=== PATIENT | female | born 1970 | race Hispanic/Latino ===

== ENCOUNTER → 2018-01-22 | Outpatient (CLI) | payer MEDICAID | LOC: RAH 13:42 | PROVIDERS: ATTEND Internal Medicine Medical Oncology | DX: C73 Malignant neoplasm of thyroid gland (principal); E89.0 Postprocedural hypothyroidism | CPT/HCPCS: 76536 ==

== ENCOUNTER → 2018-01-27 | Outpatient (CLI) | payer MEDICAID | END | disposition home or self-care (01) | LOC: SHCH 10:48 | PROVIDERS: ATTEND Internal Medicine Cardiovascular Disease | DX: I51.7 Cardiomegaly (principal); I31.3 Pericardial effusion (noninflammatory) | CPT/HCPCS: 93306 ==

== ENCOUNTER 2019-07-01 08:13 | Emergency (ER) | payer MEDICAID, SELFPAY ==
[2019-07-01] MEDS ORDERED: MORPHINE SULFATE 4 MG/1ML SYG ONE (08:47)
[2019-07-01 08:55] LABS: BASOPHILS % (AUTO) 0.3 % (0.0-5.0); EOSINOPHILS % (AUTO) 1.8 % (0.0-8.0); HEMATOCRIT 34.5 % (36-48); LYMPHOCYTES % (AUTO) 12.5 % (21.0-51.0); MEAN CORPUSCULAR HEMOGLOBIN 30.8 pg (27.0-33.0); MEAN CORPUSCULAR HGB CONC 34.7 g/dL (32.0-36.0); MEAN CORPUSCULAR VOLUME 88.9 fL (79-99); MONOCYTES % (AUTO) 4.5 % (3.0-13.0); NEUTROPHILS % (AUTO) 80.9 % (40.0-77.0); PLATELET COUNT (AUTO) 369 K/uL (130-400); RED BLOOD CELL COUNT(AUTO) 3.88 MIL/uL (4.00-5.50); RED CELL DISTRIBUTION WIDTH 14.3 % (11.0-15.5); WHITE BLOOD COUNT (AUTO) 8.5 K/uL (4.8-10.8)
[2019-07-01 09:02] LABS: CREATININE 0.8 mg/dL (0.5-1.5); POTASSIUM 3.5 mmol/L (3.5-5.1)
[2019-07-01 10:34] LABS: BILIRUBIN,URINE SMALL (NEGATIVE); COLOR,URINE YELLOW (YELLOW); GLUCOSE, URINE (UA) 100 mg/dL (NEGATIVE); KETONES,URINE NEGATIVE (NEGATIVE); LEUKOCYTE ESTERASE ,URINE NEGATIVE (NEGATIVE); NITRATE,URINE NEGATIVE (NEGATIVE); OCCULT BLOOD,URINE LARGE (NEGATIVE); PROTEIN,URINE >=300 mg/dL (NEGATIVE)
[2019-07-01 10:57] LABS: APPEARANCE,URINE CLOUDY (CLEAR)
[2019-07-01 11:07] LABS: BACTERIA,URINE Many /HPF (None Seen); SQUAMOUS EPITHELIAL CELL,UR 0-2 /HPF (0-2)
[2019-07-01 11:08] LABS: AMORPHOUS SEDIMENT,UR Moderate /LPF (None Seen)
[2019-07-01 11:09] LABS: YEAST,URINE BUDDING Many /HPF (None Seen)
== END 2019-07-01 17:17 | disposition home or self-care (01) ==
LOC: EDH 08:13
DX: S20.212A Contusion of left front wall of thorax, initial encounter (principal); S70.02XA Contusion of left hip, initial encounter; E11.9 Type 2 diabetes mellitus without complications; F41.9 Anxiety disorder, unspecified; F32.9 Major depressive disorder, single episode, unspecified; W01.198A Fall on same level from slipping, tripping and stumbling with subsequent striking against other object, initial encounter; Y93.89 Activity, other specified; Y92.89 Other specified places as the place of occurrence of the external cause; Y99.8 Other external cause status
CPT/HCPCS: 36415; 70450; 71101; 73502; 80048; 81001; 84484; 85025; 93005; 96374; 99285; J2270

== ENCOUNTER 2019-07-03 01:26 | Inpatient (IN) | payer MEDICAID ==
[~2019-07-03] VITALS: Ht 149.9 cm; Wt 63.8 kg
[2019-07-03] MEDS ORDERED: SODIUM CHLORIDE 0.9% 1000ML 1,000 ML IV ONE ×2 (03:18→12:32)
[2019-07-03 03:23] LABS: BASOPHILS % (AUTO) 2.3 % (0.0-5.0); EOSINOPHILS % (AUTO) 1.3 % (0.0-8.0); HEMATOCRIT 35.7 % (36-48); LYMPHOCYTES % (AUTO) 7.9 % (21.0-51.0); MEAN CORPUSCULAR HGB CONC 34.2 g/dL (32.0-36.0); MEAN CORPUSCULAR VOLUME 87.8 fL (79-99); MONOCYTES % (AUTO) 4.8 % (3.0-13.0); NEUTROPHILS % (AUTO) 83.7 % (40.0-77.0); PLATELET COUNT (AUTO) 342 K/uL (130-400); RED BLOOD CELL COUNT(AUTO) 4.07 MIL/uL (4.00-5.50); WHITE BLOOD COUNT (AUTO) 11.4 K/uL (4.8-10.8)
[2019-07-03 03:35] LABS: CREATININE 0.6 mg/dL (0.5-1.5); POTASSIUM 4.8 mmol/L (3.5-5.1)
[2019-07-03 03:40] LABS: APPEARANCE,URINE CLOUDY (CLEAR); BILIRUBIN,URINE SMALL (NEGATIVE); COLOR,URINE YELLOW (YELLOW); GLUCOSE, URINE (UA) NEGATIVE (NEGATIVE); KETONES,URINE 5 mg/dL (NEGATIVE); LEUKOCYTE ESTERASE ,URINE NEGATIVE (NEGATIVE); NITRATE,URINE NEGATIVE (NEGATIVE); OCCULT BLOOD,URINE MODERATE (NEGATIVE); PROTEIN,URINE >=300 mg/dL (NEGATIVE)
[2019-07-03 03:44] LABS: INR 1.01 (0.85-1.15); PROTHROMBIN TIME 10.6 SEC (9.6-11.6)
[2019-07-03 03:47] LABS: ALBUMIN 2.1 g/dL (3.5-5.0); BILIRUBIN,TOTAL 0.9 mg/dL (0.2-1.0); THYROID STIMULATING HORMONE 42.61 uIU/mL (0.36-3.74)
[2019-07-03 03:49] LABS: AMPHET/METH SCREEN,URINE NEGATIVE (NEGATIVE); BARBITURATE SCREEN, URINE NEGATIVE (NEGATIVE); BENZODIAZEPINES SCREEN,URINE NEGATIVE (NEGATIVE); CANNABINOID SCREEN,URINE NEGATIVE (NEGATIVE); COCAINE SCREEN,URINE NEGATIVE (NEGATIVE); OPIATE SCREEN,URINE NEGATIVE (NEGATIVE); PHENCYCLIDINE SCREEN,URINE NEGATIVE (NEGATIVE)
[2019-07-03 03:58] LABS: B-TYPE NATRIURETIC PEPTIDE 99 pg/mL (0-100)
[2019-07-03 04:05] LABS: BACTERIA,URINE Many /HPF (None Seen)
[2019-07-03 04:06] LABS: SQUAMOUS EPITHELIAL CELL,UR 0-2 /HPF (0-2); YEAST,URINE BUDDING Many /HPF (None Seen)
[2019-07-03] MEDS: SODIUM CHLORIDE 0.9% 1000ML 1,000 ML IV SCH ×2 (04:31→14:31)
[2019-07-03] MEDS ORDERED: ALPRAZOLAM 0.25 MG TABLET PO PRN (04:45)
[2019-07-03] MEDS ORDERED: LACTULOSE 20 GM/30 ML UDCUP PO PRN (04:45)
[2019-07-03] MEDS ORDERED: ACETAMINOPHEN 325 MG TAB PO PRN (04:45)
[2019-07-03] MEDS ORDERED: CEFTRIAXONE SODIUM 1 GM IV SCH (04:45)
[2019-07-03 05:46] LABS: HEMOGLOBIN A1C 12.4 % (4.0-6.0)
[2019-07-03] MEDS ORDERED: CEFTRIAXONE SODIUM 1 GM ONE (06:19)
[2019-07-03] MEDS: INSULIN HUMULIN R 100 UNIT/ML 3ML SQ SCH ×4 (07:30→21:00)
[2019-07-03] MEDS: FAMOTIDINE 20MG TAB 20 MG TAB PO SCH ×2 (09:00→21:35)
[2019-07-03] MEDS: ENOXAPARIN SODIUM 30 MG/0.3 ML SQ SCH (09:00)
[2019-07-03] MEDS ORDERED: LACTULOSE 20 GM/30 ML UDCUP ONE (12:28)
[2019-07-03] MEDS ORDERED: ENOXAPARIN SODIUM 30 MG/0.3 ML SQ ONE (12:28)
[2019-07-03] MEDS ORDERED: FAMOTIDINE 20MG TAB 20 MG TAB ONE (12:28)
[2019-07-03] MEDS ORDERED: INSULIN HUMULIN R 100 UNIT/ML 3ML ONE (13:16)
[2019-07-03 16:00] VITALS: BP 136/89
[2019-07-03] MEDS: CEFTRIAXONE SODIUM 1 GM IVP SCH (17:51)
[2019-07-03 19:15] VITALS: BP 138/83
--- NOTE | 2019-07-03 19:52 | NUR ---
ADDENDUM TO SKIN ASS. RIGHT BUTTOCK ULCER MEASURING 2.5CM DIAMETER YELLOWISH IN COLOR SUPERFICIALLY ENCOMPASSING ENTIRE ULCER ,WASH WITH STERILE NSS ,COVERED WITH ALLEVYN FOAM. LEFT BUTTOCK WITH A 7 X8 SWELLING WITH INDURATION NOTED ,DARKLY PIGMENTED AREA, NO VISIBLE OPENING BUT TENDER TO PALPATION PER PT. WARM COMPRESS APPLIED ,WILL REPORT TO IN A.M. Addendum: 07/04/19 at 0329 by DANI CHÁVEZ RN RN Amended: Links added.
[2019-07-03] MEDS: TRAZODONE HCL 100 MG TABLET PO SCH (21:35)
[2019-07-03] MEDS: INSULIN GLARGINE 100 UNITS/ML 10 ML VIAL SQ SCH (21:37)
[2019-07-03 23:38] VITALS: BP 97/56
[2019-07-04] MEDS: SODIUM CHLORIDE 0.9% 1000ML 1,000 ML IV SCH ×3 (00:39→21:52)
[2019-07-04 03:02] VITALS: BP 97/62
[2019-07-04] MEDS: CEFTRIAXONE SODIUM 1 GM IVP SCH ×2 (03:04→14:22)
[2019-07-04] MEDS: ACETAMINOPHEN 325 MG TAB PO PRN (03:05)
[2019-07-04] MEDS: INSULIN HUMULIN R 100 UNIT/ML 3ML SQ SCH ×4 (06:15→21:00)
[2019-07-04] MEDS ORDERED: LEVOTHYROXINE 50 MCG TABLET PO SCH (06:30)
[2019-07-04 07:30] VITALS: BP 89/48
--- NOTE | 2019-07-04 08:00 | NUR ---
Patient awake, responds to simple questions, denying pain. Skin color pale in general. Roper catheter draining dark yellow color urine. 1:1 sitter
[2019-07-04 08:15] VITALS: BP 91/59
[2019-07-04] MEDS: FAMOTIDINE 20MG TAB 20 MG TAB PO SCH (08:24)
[2019-07-04] MEDS: PAROXETINE HCL 20 MG TABLET PO SCH (08:24)
[2019-07-04] MEDS: TRAZODONE HCL 100 MG TABLET PO SCH ×3 (08:24→22:52)
[2019-07-04] MEDS: ENOXAPARIN SODIUM 30 MG/0.3 ML SQ SCH (08:24)
[2019-07-04 10:40] LABS: BASOPHILS % (AUTO) 1.2 % (0.0-5.0); EOSINOPHILS % (AUTO) 0.5 % (0.0-8.0); HEMATOCRIT 27.4 % (36-48); LYMPHOCYTES % (AUTO) 9.1 % (21.0-51.0); MEAN CORPUSCULAR HEMOGLOBIN 30.3 pg (27.0-33.0); MEAN CORPUSCULAR HGB CONC 34.2 g/dL (32.0-36.0); MEAN CORPUSCULAR VOLUME 88.6 fL (79-99); MONOCYTES % (AUTO) 4.9 % (3.0-13.0); NEUTROPHILS % (AUTO) 84.3 % (40.0-77.0); PLATELET COUNT (AUTO) 254 K/uL (130-400); RED CELL DISTRIBUTION WIDTH 14.5 % (11.0-15.5); WHITE BLOOD COUNT (AUTO) 14.5 K/uL (4.8-10.8)
--- NOTE | 2019-07-04 10:40 | NUR ---
Referral to Raffi yates was called in to [facility] to [phone]. She said that since the patient is not cleared for discharge yet that she cannot send a screener so to go ahead and call again when pt is clear for discharge so that Raffi yates can send the screener. Jossy ARELLANO Case-distribution warehouse manager aware
--- NOTE | 2019-07-04 10:40 | NUR ---
Dr Barney informed of drop on hemoglobin from 12 to 9 levels. He will give orders
[2019-07-04 10:56] LABS: ALBUMIN 1.5 g/dL (3.5-5.0); BILIRUBIN,TOTAL 0.3 mg/dL (0.2-1.0); CREATININE 1.2 mg/dL (0.5-1.5); TOTAL PROTEIN, SERUM 5.5 g/dL (6.0-8.3)
[2019-07-04 10:57] LABS: POTASSIUM 2.9 mmol/L (3.5-5.1)
[2019-07-04 11:00] VITALS: BP 91/56
[2019-07-04] MEDS: LEVOTHYROXINE 50 MCG TABLET PO SCH (11:16)
[2019-07-04] MEDS: POLYETHYLENE GLYCOL 3350 17 GM POWD.PACK PO SCH (11:16)
[2019-07-04] MEDS ORDERED: POTASSIUM CHLORIDE 20 MEQ ERTAB PO PRN (11:30)
[2019-07-04] MEDS ORDERED: POTASSIUM CHLORIDE 10MEQ/100ML 100 ML IV PRN (11:30)
[2019-07-04] MEDS ORDERED: LIDOCAINE HCL-MPF 1% 2ML VIAL IV PRN (11:30)
--- NOTE | 2019-07-04 12:39 | NUR ---
Nutrition intervention: Nutrition notification for malnutrition. Pt admitted for UTI, and Fall. Pt reports poor quality of feeding patterns at home. Unable to prepare her own meals or go to the restroom. Pt states she lives with daughter who prepares pt's meals x1/day after daughter gets home from work. Pt states she wears a diaper for when she has a bowel movement or urinates. Pt states she cleans herself every day. Pt also states she has poor appetite, however sitter states she had good po intake for breakfast. Pt with noted ulcers to her buttocks, recommend increased protein. Recommendations: Continue current diet therapy. Modify with Glucerna BID with meals for added caloric intake. Feeding assistance with all meals. Monitor PO intake and tolerance Addendum: 07/04/19 at [address] Amended: Links added.
[2019-07-04 14:21] LABS: HEMATOCRIT 28.8 % (36-48)
[2019-07-04] MEDS: POTASSIUM CHLORIDE 10% ELIXIR 20 MEQ/15 ML UDCUP PO PRN ×2 (14:49→17:11)
[2019-07-04 16:00] VITALS: BP 104/59
--- NOTE | 2019-07-04 16:00 | NUR ---
Tolerating potassium IV infusion well due to low potassium level
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
[2019-07-04] MEDS ORDERED: POTASSIUM CHLORIDE 20MEQ/100ML 100 ML IV PRN (18:15)
[2019-07-04 18:55] LABS: CREATININE 1.1 mg/dL (0.5-1.5); POTASSIUM 3.8 mmol/L (3.5-5.1)
[2019-07-04 20:00] VITALS: BP 115/81
[2019-07-04] MEDS: INSULIN GLARGINE 100 UNITS/ML 10 ML VIAL SQ SCH (21:00)
--- NOTE | 2019-07-04 21:00 | NUR ---
med non-administered lantus scheduled for 2099 not given ,pt very poor appetite,/intake , weak ,bs 102. encouraged po intake ,offered jello /apple juice Addendum: 07/04/19 at 5485 by DANI CHÁVEZ RN RN Amended: Links added.
[2019-07-04] MEDS: PANTOPRAZOLE SODIUM 40 MG TABLET.DR PO SCH (22:52)
[2019-07-05] VITALS (7 sets, daily range): BP systolic 94–121; BP diastolic 55–72
[2019-07-05] MEDS: ONDANSETRON HCL 4 MG/2 ML VIAL IV PRN (00:13)
[2019-07-05] MEDS: CEFTRIAXONE SODIUM 1 GM IVP SCH (03:09)
[2019-07-05] MEDS ORDERED: DEXTROSE 50%-WATER 50 ML DISP.SYRIN IV ONE (06:08)
[2019-07-05] MEDS ORDERED: GLUCAGON 1MG KIT 1 MG ML IM PRN (06:15)
[2019-07-05] MEDS ORDERED: LEVOTHYROXINE 112 MCG TABLET PO SCH (06:30)
[2019-07-05] MEDS: INSULIN HUMULIN R 100 UNIT/ML 3ML SQ SCH ×4 (06:42→21:00)
[2019-07-05] MEDS: SODIUM CHLORIDE 0.9% 1000ML 1,000 ML IV SCH (06:42)
[2019-07-05 06:57] LABS: BASOPHILS % (AUTO) 0.4 % (0.0-5.0); EOSINOPHILS % (AUTO) 0.2 % (0.0-8.0); HEMATOCRIT 28.3 % (36-48); LYMPHOCYTES % (AUTO) 4.2 % (21.0-51.0); MEAN CORPUSCULAR HEMOGLOBIN 30.2 pg (27.0-33.0); MEAN CORPUSCULAR HGB CONC 33.7 g/dL (32.0-36.0); MEAN CORPUSCULAR VOLUME 89.5 fL (79-99); MONOCYTES % (AUTO) 4.9 % (3.0-13.0); NEUTROPHILS % (AUTO) 90.3 % (40.0-77.0); PLATELET COUNT (AUTO) 223 K/uL (130-400); RED BLOOD CELL COUNT(AUTO) 3.16 MIL/uL (4.00-5.50); RED CELL DISTRIBUTION WIDTH 14.5 % (11.0-15.5); WHITE BLOOD COUNT (AUTO) 19.5 K/uL (4.8-10.8)
[2019-07-05 07:13] LABS: ALBUMIN 1.4 g/dL (3.5-5.0); BILIRUBIN,TOTAL 0.4 mg/dL (0.2-1.0); POTASSIUM 3.5 mmol/L (3.5-5.1); TOTAL PROTEIN, SERUM 5.5 g/dL (6.0-8.3)
--- NOTE | 2019-07-05 08:00 | NUR ---
Patient answer question appropriately. Denies pain at the moment, skin color still slightly pale
[2019-07-05] MEDS: POLYETHYLENE GLYCOL 3350 17 GM POWD.PACK PO SCH (08:16)
[2019-07-05] MEDS: PAROXETINE HCL 20 MG TABLET PO SCH (08:16)
[2019-07-05] MEDS: PANTOPRAZOLE SODIUM 40 MG TABLET.DR PO SCH ×2 (08:16→21:57)
[2019-07-05] MEDS: TRAZODONE HCL 100 MG TABLET PO SCH ×3 (08:16→21:57)
[2019-07-05] MEDS: ENOXAPARIN SODIUM 30 MG/0.3 ML SQ SCH (08:21)
[2019-07-05] MEDS: LEVOTHYROXINE 50 MCG TABLET PO SCH (10:59)
--- NOTE | 2019-07-05 11:30 | NUR ---
Dr Hercules visited with pt earlier, no new orders. Informed him that as per [place] [facility] screener cannot come to evaluate pt until pt is medically cleared and as per Dr Barney pt is not medically cleared
[2019-07-05] MEDS: DEXTROSE 5 % AND 0.9 % NACL 1,000 ML IV SCH (14:17)
[2019-07-05] MEDS: POTASSIUM CHLORIDE 10% ELIXIR 20 MEQ/15 ML UDCUP PO PRN (14:17)
[2019-07-05] MEDS: ZOSYN 3.375GM+NS 50ML 50 ML IV SCH ×2 (14:25→21:57)
--- NOTE | 2019-07-05 16:00 | NUR ---
Pt in no distress. 1:1 sitter at bedside
[2019-07-05] MEDS: INSULIN GLARGINE 100 UNITS/ML 10 ML VIAL SQ SCH (21:58)
[2019-07-06] MEDS: DEXTROSE 5 % AND 0.9 % NACL 1,000 ML IV SCH ×3 (00:52→21:35)
[2019-07-06 04:00] VITALS: BP 93/62
[2019-07-06] MEDS: ZOSYN 3.375GM+NS 50ML 50 ML IV SCH ×3 (05:32→21:34)
[2019-07-06 06:09] LABS: BASOPHILS % (AUTO) 0.6 % (0.0-5.0); EOSINOPHILS % (AUTO) 1.1 % (0.0-8.0); HEMATOCRIT 26.4 % (36-48); LYMPHOCYTES % (AUTO) 4.2 % (21.0-51.0); MEAN CORPUSCULAR HEMOGLOBIN 30.3 pg (27.0-33.0); MEAN CORPUSCULAR VOLUME 89.1 fL (79-99); MONOCYTES % (AUTO) 4.2 % (3.0-13.0); NEUTROPHILS % (AUTO) 89.9 % (40.0-77.0); PLATELET COUNT (AUTO) 227 K/uL (130-400); RED BLOOD CELL COUNT(AUTO) 2.96 MIL/uL (4.00-5.50); RED CELL DISTRIBUTION WIDTH 14.9 % (11.0-15.5); WHITE BLOOD COUNT (AUTO) 18.8 K/uL (4.8-10.8)
[2019-07-06] MEDS: LEVOTHYROXINE 150 MCG TABLET PO SCH (06:24)
[2019-07-06] MEDS: INSULIN HUMULIN R 100 UNIT/ML 3ML SQ SCH ×4 (06:34→21:00)
[2019-07-06 06:35] LABS: ALBUMIN 1.4 g/dL (3.5-5.0); BILIRUBIN,TOTAL 0.5 mg/dL (0.2-1.0); POTASSIUM 3.6 mmol/L (3.5-5.1); THYROID STIMULATING HORMONE 34.78 uIU/mL (0.36-3.74); TOTAL PROTEIN, SERUM 5.5 g/dL (6.0-8.3)
[2019-07-06 08:00] VITALS: BP 97/63
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
--- NOTE | 2019-07-06 10:10 | NUR ---
1:1 SITTER PT HAS 1:1 SITTER AT BEDSIDE FOR SUICIDAL PRECAUTIONS. PT DENIES ANY PLAN FOR SUICIDE AT THIS TIME, BUT STATES IS DEPRESSED. WILL CONTINUE TO MONITOR THROUGHOUT SHIFT. Addendum: 07/06/19 at 1514 by NAHOMY RINCON RN RN Amended: Links added.
[2019-07-06] MEDS: PANTOPRAZOLE SODIUM 40 MG TABLET.DR PO SCH ×2 (10:37→21:34)
[2019-07-06] MEDS: PAROXETINE HCL 20 MG TABLET PO SCH (10:38)
[2019-07-06] MEDS: POTASSIUM CHLORIDE 10% ELIXIR 20 MEQ/15 ML UDCUP PO PRN ×2 (10:38→14:40)
[2019-07-06] MEDS: POLYETHYLENE GLYCOL 3350 17 GM POWD.PACK PO SCH (10:39)
[2019-07-06] MEDS: ENOXAPARIN SODIUM 30 MG/0.3 ML SQ SCH (10:39)
[2019-07-06] MEDS: MORPHINE SULFATE 2 MG/ML 1ML SYG IV PRN (10:40)
[2019-07-06] MEDS: TRAZODONE HCL 100 MG TABLET PO SCH ×3 (10:42→21:34)
[2019-07-06 11:00] VITALS: BP 101/69
[2019-07-06] MEDS: ONDANSETRON HCL 4 MG/2 ML VIAL IV PRN (14:37)
[2019-07-06] MEDS ORDERED: LEVOFLOXACIN 500 MG TABLET PO SCH (16:30)
[2019-07-06 16:34] VITALS: BP 123/78
[2019-07-06 20:00] VITALS: BP 112/71
[2019-07-06] MEDS: INSULIN GLARGINE 100 UNITS/ML 10 ML VIAL SQ SCH (21:46)
[2019-07-07] VITALS (7 sets, daily range): BP systolic 90–133; BP diastolic 57–79
[2019-07-07] MEDS: DEXTROSE 5 % AND 0.9 % NACL 1,000 ML IV SCH ×2 (05:15→08:35)
[2019-07-07 05:19] LABS: BASOPHILS % (AUTO) 0.7 % (0.0-5.0); HEMATOCRIT 27.5 % (36-48); LYMPHOCYTES % (AUTO) 5.6 % (21.0-51.0); MEAN CORPUSCULAR HEMOGLOBIN 30.2 pg (27.0-33.0); MEAN CORPUSCULAR HGB CONC 33.2 g/dL (32.0-36.0); MEAN CORPUSCULAR VOLUME 90.9 fL (79-99); MONOCYTES % (AUTO) 3.5 % (3.0-13.0); NEUTROPHILS % (AUTO) 88.2 % (40.0-77.0); PLATELET COUNT (AUTO) 215 K/uL (130-400); RED BLOOD CELL COUNT(AUTO) 3.03 MIL/uL (4.00-5.50); RED CELL DISTRIBUTION WIDTH 14.7 % (11.0-15.5); WHITE BLOOD COUNT (AUTO) 16.8 K/uL (4.8-10.8)
[2019-07-07 05:35] LABS: ALBUMIN 1.3 g/dL (3.5-5.0); BILIRUBIN,TOTAL 0.4 mg/dL (0.2-1.0); CREATININE 1.1 mg/dL (0.5-1.5); POTASSIUM 3.7 mmol/L (3.5-5.1); TOTAL PROTEIN, SERUM 5.5 g/dL (6.0-8.3)
[2019-07-07] MEDS: INSULIN HUMULIN R 100 UNIT/ML 3ML SQ SCH ×4 (06:19→20:29)
[2019-07-07] MEDS: ZOSYN 3.375GM+NS 50ML 50 ML IV SCH ×3 (06:37→22:31)
[2019-07-07] MEDS: POLYETHYLENE GLYCOL 3350 17 GM POWD.PACK PO SCH (08:34)
[2019-07-07] MEDS: PAROXETINE HCL 20 MG TABLET PO SCH (08:35)
[2019-07-07] MEDS: PANTOPRAZOLE SODIUM 40 MG TABLET.DR PO SCH ×2 (08:35→20:35)
[2019-07-07] MEDS: ENOXAPARIN SODIUM 30 MG/0.3 ML SQ SCH (08:35)
[2019-07-07] MEDS: TRAZODONE HCL 100 MG TABLET PO SCH ×3 (08:35→20:35)
--- NOTE | 2019-07-07 08:35 | NUR ---
PATIENT AWAKE ALERT AND ORIENTED. DRESSING TO R GLUTEUS IS INTACT. PATIENT STATES SHE IS ABLE TO MOVE ADVISED PATIENT TO SHIFT POSITIONS EVERY HOUR, OR TO CALL FOR ASSISTANCE IS NEEDING HELP. NO COMPLAINTS AT THIS TIME. PATIENT STATES SHE FEELS FINE. SITTER AT BEDSIDE.
[2019-07-07] MEDS ORDERED: LEVOFLOXACIN 500 MG TABLET PO SCH (09:00)
[2019-07-07] MEDS: MORPHINE SULFATE 2 MG/ML 1ML SYG IV PRN (10:34)
--- NOTE | 2019-07-07 11:14 | NUR ---
ODILON PENNINGTON ROUNDING ON PATIENT. NEW ORDERS TO DISCONTINUE MORPHINE AND FLUIDS. GORGECUTTER FIRST TO PUT IN ORDERS.
--- NOTE | 2019-07-07 11:45 | NUR ---
ORANGE JUICE GIVEN TO PATIENT TO DRINK FOR BLOOD SUGAR OF 56. PATIENT EATING LUNCH AT THIS TIME.
[2019-07-07] MEDS: LEVOFLOXACIN 500 MG TABLET PO SCH (12:03)
[2019-07-07] MEDS: DEXTROSE 50%-WATER 50 ML DISP.SYRIN IV PRN ×2 (12:21→20:37)
[2019-07-07] MEDS: HYDROCODONE/ACETAMINOPHEN 5/325 MG TAB PO PRN ×2 (12:28→18:35)
--- NOTE | 2019-07-07 15:18 | NUR ---
RD Follow Up Pt tolerating current diet with fair PO intake (50%) as per cat sitter. Pt resting at time of visit. Pt with R. Buttock ulcer; Rec to add Dov BID, Vitamin C, ZnSO4. Also Rec 60mL ProMod QD. Pt monitored labs: BUN 19, GFr 56, Glu 133, Ca 6.4, ALT 10, Alk 179, Alb 1.3. Pt LBM 07/06/19. RD to continue to monitor. Please notify as additional nutrition concerns arise. Thank you. Addendum: 07/07/19 at [address] Amended: Links added.
--- NOTE | 2019-07-07 16:06 | NUR ---
[facility] consult Patient assessed as ordered. St II pressure ulcer to right buttock noted. AlleVputi life foam in place. [facility] recommendations submitted. Addendum: 07/07/19 at 1613 by PAT CUEVAS RN/ Amended: Links added.
[2019-07-07] MEDS: INSULIN GLARGINE 100 UNITS/ML 10 ML VIAL SQ SCH (20:30)
[2019-07-07] MEDS: ONDANSETRON HCL 4 MG/2 ML VIAL IV PRN (20:37)
--- NOTE | 2019-07-07 20:51 | NUR ---
Patient's blood sugar was 42. Patient is alert and awake but unable to eat cause of nausea. D50 in 50 ml was give through the IV access and zofran for nausea was given as well. Will recheck blood sugar in 30 minutes. Will monitor patient closely. No insulin was given
--- NOTE | 2019-07-07 21:23 | NUR ---
recheck of blood sugar is 99. Will recheck again at midnight since patient has not been eating well.
[2019-07-07] MEDS: ACETAMINOPHEN 325 MG TAB PO PRN (22:32)
[2019-07-08] VITALS (8 sets, daily range): BP systolic 88–120; BP diastolic 56–87
--- NOTE | 2019-07-08 00:40 | NUR ---
Paged Serina PLANISHER regarding patient's low blood pressure. Pending call back
--- NOTE | 2019-07-08 00:58 | NUR ---
Serina DONALD came to put orders for d5 ns at 100 and to recheck blood pressure in an hour. Will monitor patient closely
[2019-07-08] MEDS ORDERED: DEXTROSE 5 %-0.45 % NACL 1,000 ML IV SCH (01:00)
[2019-07-08] MEDS ORDERED: DEXTROSE 5 % AND 0.9 % NACL 1,000 ML IV ONE (01:01)
[2019-07-08] MEDS: DEXTROSE 5 % AND 0.9 % NACL 1,000 ML IV SCH ×2 (01:15→09:11)
[2019-07-08 05:15] LABS: MEAN CORPUSCULAR HEMOGLOBIN 30.5 pg (27.0-33.0); MEAN CORPUSCULAR HGB CONC 33.8 g/dL (32.0-36.0); MEAN CORPUSCULAR VOLUME 90.3 fL (79-99); PLATELET COUNT (AUTO) 232 K/uL (130-400); RED BLOOD CELL COUNT(AUTO) 2.99 MIL/uL (4.00-5.50); RED CELL DISTRIBUTION WIDTH 14.5 % (11.0-15.5); WHITE BLOOD COUNT (AUTO) 11.9 K/uL (4.8-10.8)
[2019-07-08 05:23] LABS: CREATININE 1.3 mg/dL (0.5-1.5); POTASSIUM 3.9 mmol/L (3.5-5.1)
[2019-07-08] MEDS: LEVOTHYROXINE 150 MCG TABLET PO SCH (05:54)
[2019-07-08] MEDS: ZOSYN 3.375GM+NS 50ML 50 ML IV SCH (05:54)
[2019-07-08] MEDS: INSULIN HUMULIN R 100 UNIT/ML 3ML SQ SCH ×4 (05:58→20:04)
[2019-07-08] MEDS: HYDROCODONE/ACETAMINOPHEN 5/325 MG TAB PO PRN (07:43)
[2019-07-08] MEDS: ONDANSETRON HCL 4 MG/2 ML VIAL IV PRN (08:50)
[2019-07-08] MEDS ORDERED: LEVOFLOXACIN 500 MG TABLET PO SCH (09:00)
[2019-07-08] MEDS: TRAZODONE HCL 100 MG TABLET PO SCH ×3 (09:10→21:03)
[2019-07-08] MEDS: POLYETHYLENE GLYCOL 3350 17 GM POWD.PACK PO SCH (09:10)
[2019-07-08] MEDS: ENOXAPARIN SODIUM 30 MG/0.3 ML SQ SCH (09:10)
[2019-07-08] MEDS: PANTOPRAZOLE SODIUM 40 MG TABLET.DR PO SCH ×2 (09:10→21:03)
[2019-07-08] MEDS: PAROXETINE HCL 20 MG TABLET PO SCH (09:10)
[2019-07-08] MEDS: LEVOFLOXACIN 500 MG TABLET PO SCH (10:54)
[2019-07-08] MEDS: ACETAMINOPHEN 325 MG TAB PO PRN (14:09)
[2019-07-08] MEDS ORDERED: DEXAMETHASONE 4 MG TAB PO SCH (16:00)
[2019-07-08] MEDS ORDERED: POLYETHYLENE GLYCOL 3350 17 GM POWD.PACK PO SCH (17:30)
[2019-07-08] MEDS ORDERED: LACTULOSE 20 GM/30 ML UDCUP PO SCH (17:30)
--- NOTE | 2019-07-08 19:15 | NUR ---
HOLLIS CATHETER OUTPUT ONLY 240 ML. HOLLIS CATHETER WILL STAY IN PLACE.
[2019-07-09] VITALS (7 sets, daily range): BP systolic 103–149; BP diastolic 73–92
[2019-07-09 05:03] LABS: HEMATOCRIT 27.8 % (36-48); MEAN CORPUSCULAR HEMOGLOBIN 30.5 pg (27.0-33.0); MEAN CORPUSCULAR HGB CONC 33.7 g/dL (32.0-36.0); MEAN CORPUSCULAR VOLUME 90.5 fL (79-99); PLATELET COUNT (AUTO) 242 K/uL (130-400); RED BLOOD CELL COUNT(AUTO) 3.07 MIL/uL (4.00-5.50); RED CELL DISTRIBUTION WIDTH 15.1 % (11.0-15.5); WHITE BLOOD COUNT (AUTO) 9.3 K/uL (4.8-10.8)
[2019-07-09 05:10] LABS: CREATININE 1.3 mg/dL (0.5-1.5); POTASSIUM 4.1 mmol/L (3.5-5.1)
[2019-07-09] MEDS: LEVOTHYROXINE 150 MCG TABLET PO SCH (05:45)
[2019-07-09] MEDS: INSULIN HUMULIN R 100 UNIT/ML 3ML SQ SCH ×4 (06:32→20:36)
[2019-07-09] MEDS: POLYETHYLENE GLYCOL 3350 17 GM POWD.PACK PO SCH (08:35)
[2019-07-09] MEDS: PANTOPRAZOLE SODIUM 40 MG TABLET.DR PO SCH ×2 (08:35→20:30)
[2019-07-09] MEDS: ENOXAPARIN SODIUM 30 MG/0.3 ML SQ SCH (08:35)
[2019-07-09] MEDS: DEXAMETHASONE 4 MG TAB PO SCH (08:35)
[2019-07-09] MEDS: PAROXETINE HCL 20 MG TABLET PO SCH (08:35)
[2019-07-09] MEDS: TRAZODONE HCL 100 MG TABLET PO SCH ×3 (09:15→20:31)
[2019-07-09] MEDS: DEXTROSE 5 % AND 0.9 % NACL 1,000 ML IV SCH (11:15)
[2019-07-09] MEDS: LEVOFLOXACIN 500 MG TABLET PO SCH (12:36)
[2019-07-09] MEDS: GUAIFENESIN-CODEINE 5 ML SYRUP PO PRN ×3 (12:37→22:38)
[2019-07-09] MEDS ORDERED: HYDROCORTISONE SOD SUCCINATE 100 MG/2 ML VIAL IV SCH (16:30)
--- NOTE | 2019-07-09 17:00 | NUR ---
PATIENT CONTINUES TO COMPLAIN OF PAIN BELOW HER RIBCAGE. CRACKLES AUDIBLE BILATERAL LOWER LOBES. DR. NOONAN AWARE OF PT LOW URINE OUTPUT. NEW ORDER TO ADMINISTER 20 MG OF LASIX IV. PT NOT MEDICALLY CLEAR YET. ONLY PENDING ON IMPROVEMENT OF URINE OUTPUT.
[2019-07-09] MEDS ORDERED: FUROSEMIDE 10 MG/ML 2ML VIAL IV SCH (18:06)
[2019-07-10 04:00] VITALS: BP 132/77
[2019-07-10 05:15] LABS: HEMATOCRIT 30.9 % (36-48); MEAN CORPUSCULAR HEMOGLOBIN 30.4 pg (27.0-33.0); MEAN CORPUSCULAR HGB CONC 34.1 g/dL (32.0-36.0); MEAN CORPUSCULAR VOLUME 89.2 fL (79-99); PLATELET COUNT (AUTO) 330 K/uL (130-400); RED BLOOD CELL COUNT(AUTO) 3.47 MIL/uL (4.00-5.50); RED CELL DISTRIBUTION WIDTH 14.6 % (11.0-15.5); WHITE BLOOD COUNT (AUTO) 9.9 K/uL (4.8-10.8)
[2019-07-10 05:24] LABS: CREATININE 1.1 mg/dL (0.5-1.5); POTASSIUM 4.1 mmol/L (3.5-5.1); T4 (THYROXINE) 2.8 ug/dL (4.7-13.3)
[2019-07-10] MEDS: LEVOTHYROXINE 150 MCG TABLET PO SCH (05:40)
[2019-07-10] MEDS: INSULIN HUMULIN R 100 UNIT/ML 3ML SQ SCH ×4 (06:20→20:54)
[2019-07-10] MEDS: DEXTROSE 5 % AND 0.9 % NACL 1,000 ML IV SCH (06:20)
[2019-07-10 08:00] VITALS: BP 107/65
--- NOTE | 2019-07-10 08:41 | NUR ---
CHART REVIEW NOTE MADE OF POST BILATERAL THYROIDECOMY STATUS. , CHART REVIEWED FOR MEDS AND FOR PHOSPHORUS LEVEL. NOT EVIDENT. WILL REQUEST FROM [facility]
[2019-07-10] MEDS: DEXAMETHASONE 4 MG TAB PO SCH (09:37)
[2019-07-10] MEDS: PAROXETINE HCL 20 MG TABLET PO SCH (09:38)
[2019-07-10] MEDS: POLYETHYLENE GLYCOL 3350 17 GM POWD.PACK PO SCH (09:38)
[2019-07-10] MEDS: TRAZODONE HCL 100 MG TABLET PO SCH ×3 (09:38→20:43)
[2019-07-10] MEDS: PANTOPRAZOLE SODIUM 40 MG TABLET.DR PO SCH ×2 (09:38→20:42)
[2019-07-10] MEDS: ENOXAPARIN SODIUM 30 MG/0.3 ML SQ SCH (09:39)
[2019-07-10] MEDS ORDERED: ERGOCALCIFEROL (VITAMIN D2) 50,000 UNIT CAPSULE PO SCH (10:30)
[2019-07-10] MEDS: GUAIFENESIN-DM 200/20 MG 10 ML PO SCH ×4 (10:45→22:45)
[2019-07-10] MEDS ORDERED: FUROSEMIDE 10 MG/ML 4ML VIAL IV SCH (10:45)
[2019-07-10] MEDS ORDERED: IPRATROPIUM/ALBUTEROL SULFATE 3 ML SOLUTION IH SCH (10:45)
[2019-07-10] MEDS: LEVOFLOXACIN 500 MG TABLET PO SCH (11:17)
--- NOTE | 2019-07-10 11:25 | NUR ---
Roper Catheter removed without difficulty. Patient tolerated well. DTV at 1715.
[2019-07-10] MEDS: IPRATROPIUM/ALBUTEROL SULFATE 3 ML SOLUTION IH SCH ×2 (11:29→18:07)
[2019-07-10 12:00] VITALS: BP 129/80
--- NOTE | 2019-07-10 13:48 | NUR ---
RD NOTIFICATION/ FOLLOW UP DX: FALL, UTI. CURRENT DIET: GI SOFT/ BLAND. PO INTAKE 25% AND HAS POOR APPETITE PER PT. LABS: BUN 19, CRE OK, GFR 56, BG 178, T4 2.8, BNP 173, TSH 33.7, A1C 12.4, WBC RESOLVED, ALB 1.3. MEDS: ZOFRAN, LACTULOSE, PAXIL, PROTONIX, SYNTHROID, MIRALAX, ROBITUSSIN, DECADRON, LEVAQUIN, HUMULIN R, TYLENOL. SKIN: 1+ NON-PITTING EDEMA, BUTTOCK ULCER PRESENT. PT STATED NO APPETITE X1 MONTH. USUAL BODY WEIGHT 150# PER PT. RD DID NOT PROVIDE DIABETES NUTRITION AND DIET EDUCATION [id number] DUE TO NOT FEELING WELL AND POOR PO INTAKE AND APPETITE. RD WILL PROVIDE EDUCATION BEFORE DISCHARGED. RD RECOMMENDS CONTINUE CURRENT DIET. ADD 60GM CCD TO DIET ORDER. OFFER/ ENCOURAGE GLUCERNA IF PT CONTINUES NOT EATING WELL. RECOMMEND APPETITE STIMULANT. RD WILL PROVIDE DIALBETES DIET AND NUTRITION EDUCATION PRIOR TO DISCHARGE. RD WILL CONTINUE TO MONITOR AND FOLLOW UP NEEDED. PLEASE NOTIFY RD IF ANY OTHER NUTRITIONAL CONCERNS ARISE. THANK YOU. DIETITIAN TRAINEE SHANNAN AYALA Addendum: 07/10/19 at [address] Amended: Links added.
--- NOTE | 2019-07-10 14:20 | NUR ---
[facility] Called juan francisco/reginald wyatt. Will relay to [facility] personnel doing the hospital assessment .
--- NOTE | 2019-07-10 14:52 | NUR ---
[facility] CONSULT PATIENT ASSESSED REQUESTED: PATIENT DOES NOT PRESENT WITH ANY OPEN WOUND TO HIP AT THIS TIME; NO [facility] RECOMMENDATION REQUIRED. Addendum: 07/10/19 at 1453 by CANDIDA MARCOS LVN Amended: Links added.
[2019-07-10 16:00] VITALS: BP 143/85
--- NOTE | 2019-07-10 17:05 | NUR ---
NO AUTH FOR ERIS SILVERMAN FROM ERIS HERE, THIS CM CALLED TO [facility], NO ANSWER, CALLED THE AFTER HOUR LINE, SPENT 15 MINS ON THE PHONE- THEY STATE NO PENDING AUTH FOR ERIS Cortez REP TO FOLLOW UP Addendum: 07/10/19 at 192 by SALINA BRAUN RN CM Amended: Links added. Addendum: 07/10/19 at 1924 by SALINA BRAUN RN CM WRONG PT NOTE
--- NOTE | 2019-07-10 17:06 | NUR ---
CM NOTE AT 1705 IS ON WRONG CHART
--- NOTE | 2019-07-10 17:15 | NUR ---
One to One Discontinued One to one Discontinued. [facility] Represent present for assessment and states patient does not qualify for Psychiatric Inpatient facility at this time.
--- NOTE | 2019-07-10 19:28 | NUR ---
CHALLENGE TO DC PLAN [facility] SCREENER STATES PT MEDICAL NEEDS MEAN SHE WILL NOT BE ACCEPTED AT ANY INPATIENT PSYCH UNIT- CALL TO LYNDSAY GARZA [facility] POSSIBLE PLACEMENT FOR SNF OR FDC ??? STATES IF ASKED SHE WILL SCREEN BUT WILL BE DIFFICULT Addendum: 07/10/19 at 1931 by SALINA BRAUN RN CM Amended: Links added.
[2019-07-10 20:00] VITALS: BP 144/78
--- NOTE | 2019-07-10 21:28 | NUR ---
NURSING NOTE SPOKE WITH HOSPITALIST ABOUT PT'S DUONEB. PT WANTS ATROVENT INSTEAD OF DUONEB BECAUSE THE DUONEB MAKES HER DIZZY. HOSPITALIST STATED TO CHANGE TO ATROVENT.
[2019-07-10] MEDS ORDERED: IPRATROPIUM 0.5 MG/2.5 ML INH IH ONE (23:11)
[2019-07-11] VITALS: BP 130/73
[2019-07-11 04:00] VITALS: BP 148/80
[2019-07-11] MEDS: GUAIFENESIN-DM 200/20 MG 10 ML PO SCH ×5 (05:09→20:20)
[2019-07-11] MEDS: LEVOTHYROXINE 150 MCG TABLET PO SCH (05:09)
[2019-07-11 05:18] LABS: HEMATOCRIT 31.4 % (36-48); MEAN CORPUSCULAR HEMOGLOBIN 30.3 pg (27.0-33.0); MEAN CORPUSCULAR HGB CONC 33.6 g/dL (32.0-36.0); NUCLEATED RED BLOOD CELLS 0.1 % (0.0-0.19); PLATELET COUNT (AUTO) 296 K/uL (130-400); RED BLOOD CELL COUNT(AUTO) 3.49 MIL/uL (4.00-5.50); RED CELL DISTRIBUTION WIDTH 14.5 % (11.0-15.5); WHITE BLOOD COUNT (AUTO) 9.7 K/uL (4.8-10.8)
[2019-07-11 05:35] LABS: CREATININE 0.9 mg/dL (0.5-1.5); POTASSIUM 4.1 mmol/L (3.5-5.1)
[2019-07-11] MEDS: IPRATROPIUM 0.5 MG/2.5 ML INH IH SCH ×4 (06:06→23:03)
[2019-07-11] MEDS: INSULIN HUMULIN R 100 UNIT/ML 3ML SQ SCH ×4 (06:46→20:25)
[2019-07-11 07:30] VITALS: BP 149/90
[2019-07-11] MEDS: PANTOPRAZOLE SODIUM 40 MG TABLET.DR PO SCH ×2 (09:40→20:20)
[2019-07-11] MEDS: POLYETHYLENE GLYCOL 3350 17 GM POWD.PACK PO SCH (09:40)
[2019-07-11] MEDS: DEXAMETHASONE 4 MG TAB PO SCH (09:41)
[2019-07-11] MEDS: ENOXAPARIN SODIUM 30 MG/0.3 ML SQ SCH (09:41)
[2019-07-11] MEDS: TRAZODONE HCL 100 MG TABLET PO SCH ×3 (09:41→20:21)
[2019-07-11] MEDS: PAROXETINE HCL 20 MG TABLET PO SCH (09:42)
[2019-07-11 11:00] VITALS: BP 137/88
[2019-07-11] MEDS: LEVOFLOXACIN 500 MG TABLET PO SCH (11:00)
[2019-07-11 16:00] VITALS: BP 143/89
[2019-07-11 19:05] VITALS: BP 157/80
[2019-07-12 00:05] VITALS: BP 155/82
[2019-07-12 04:12] VITALS: BP 141/80
[2019-07-12] MEDS: GUAIFENESIN-DM 200/20 MG 10 ML PO SCH ×5 (04:56→22:51)
[2019-07-12] MEDS: LEVOTHYROXINE 150 MCG TABLET PO SCH (04:56)
[2019-07-12 06:15] LABS: HEMATOCRIT 30.9 % (36-48); MEAN CORPUSCULAR HEMOGLOBIN 30.8 pg (27.0-33.0); MEAN CORPUSCULAR HGB CONC 34.6 g/dL (32.0-36.0); MEAN CORPUSCULAR VOLUME 89.1 fL (79-99); PLATELET COUNT (AUTO) 326 K/uL (130-400); RED BLOOD CELL COUNT(AUTO) 3.47 MIL/uL (4.00-5.50); RED CELL DISTRIBUTION WIDTH 14.6 % (11.0-15.5); WHITE BLOOD COUNT (AUTO) 7.8 K/uL (4.8-10.8)
[2019-07-12 06:22] LABS: CREATININE 0.7 mg/dL (0.5-1.5); POTASSIUM 4.1 mmol/L (3.5-5.1)
[2019-07-12] MEDS: IPRATROPIUM 0.5 MG/2.5 ML INH IH SCH ×4 (06:23→23:47)
[2019-07-12] MEDS: INSULIN HUMULIN R 100 UNIT/ML 3ML SQ SCH ×4 (06:54→21:08)
[2019-07-12 08:00] VITALS: BP 157/94
[2019-07-12 08:31] LABS: BAND NEUTROPHILS % (MANUAL) 4 % (0-2); LYMPHOCYTES % (MANUAL) 11 % (22-44); MONOCYTES % (MANUAL) 5 % (2-9); SEGMENTED NEUTROPHILS % 80 % (40-70)
[2019-07-12 08:32] LABS: MAN.DIFF COMMENT-IMPRESSION MANUAL DIFFERENTIAL; PLATELET MORPHOLOGY COMMENT ADEQUATE
[2019-07-12] MEDS: PANTOPRAZOLE SODIUM 40 MG TABLET.DR PO SCH ×2 (09:38→21:05)
[2019-07-12] MEDS: POLYETHYLENE GLYCOL 3350 17 GM POWD.PACK PO SCH (09:38)
[2019-07-12] MEDS: DEXAMETHASONE 4 MG TAB PO SCH (09:39)
[2019-07-12] MEDS: TRAZODONE HCL 100 MG TABLET PO SCH ×3 (09:39→21:04)
[2019-07-12] MEDS: ENOXAPARIN SODIUM 30 MG/0.3 ML SQ SCH (09:40)
[2019-07-12] MEDS: PAROXETINE HCL 20 MG TABLET PO SCH (09:40)
[2019-07-12] MEDS: LEVOFLOXACIN 500 MG TABLET PO SCH (10:43)
[2019-07-12 11:58] VITALS: BP 169/96
[2019-07-12 16:00] VITALS: BP 171/96
--- NOTE | 2019-07-12 18:10 | NUR ---
[facility] [place] [facility]: Met w pt earlier this afternoon to discuss Md recommendation for referral to [facility] [facility]. Pt in agreement ED[facility]/PC consent signed. Referral faxed. Francy from [facility] came by to amy pt. States will submit request to ins in am. Order for [facility] left flagged in chart. Informed primary nurse need for Md signature.
[2019-07-12 20:00] VITALS: BP 148/90
[2019-07-12] MEDS: ONDANSETRON HCL 4 MG/2 ML VIAL IV PRN (21:28)
[2019-07-12] MEDS: ACETAMINOPHEN 325 MG TAB PO PRN (21:28)
--- NOTE | 2019-07-12 21:28 | NUR ---
NAUSEA Pt medicated with Zofran for c/o of nausea.
--- NOTE | 2019-07-12 22:02 | NUR ---
LICE Notified per Angely Cooper,pt has lice when she was giving her a bath.Placed on Contact Precaution.Notified Luis Carlos Valle Np,gave orders.Pharmacy closed thistime. Addendum: 07/12/19 at 2205 by ANGELY RIVERA RN RN [place] supervisBekah davis
--- NOTE | 2019-07-12 23:00 | NUR ---
MED EFFECT Denies nausea this time.
[2019-07-13] VITALS (7 sets, daily range): BP systolic 148–173; BP diastolic 78–99
--- NOTE | 2019-07-13 04:12 | NUR ---
INCONTINENT Incontinent care rendered per staff.
[2019-07-13] MEDS: GUAIFENESIN-DM 200/20 MG 10 ML PO SCH ×5 (05:02→22:56)
[2019-07-13 05:40] LABS: HEMATOCRIT 30.5 % (36-48); MEAN CORPUSCULAR HGB CONC 33.7 g/dL (32.0-36.0); MEAN CORPUSCULAR VOLUME 89.1 fL (79-99); PLATELET COUNT (AUTO) 309 K/uL (130-400); RED BLOOD CELL COUNT(AUTO) 3.42 MIL/uL (4.00-5.50); RED CELL DISTRIBUTION WIDTH 14.3 % (11.0-15.5); WHITE BLOOD COUNT (AUTO) 9.6 K/uL (4.8-10.8)
[2019-07-13 05:47] LABS: CREATININE 0.7 mg/dL (0.5-1.5); POTASSIUM 4.3 mmol/L (3.5-5.1)
[2019-07-13] MEDS: LEVOTHYROXINE 150 MCG TABLET PO SCH (06:31)
[2019-07-13] MEDS: INSULIN HUMULIN R 100 UNIT/ML 3ML SQ SCH ×4 (06:34→20:23)
[2019-07-13] MEDS: IPRATROPIUM 0.5 MG/2.5 ML INH IH SCH ×4 (06:36→23:49)
[2019-07-13 07:30] LABS: BAND NEUTROPHILS % (MANUAL) 1 % (0-2); LYMPHOCYTES % (MANUAL) 5 % (22-44); MAN.DIFF COMMENT-IMPRESSION MANUAL DIFFERENTIAL; MONOCYTES % (MANUAL) 2 % (2-9); PLATELET MORPHOLOGY COMMENT ADEQUATE; SEGMENTED NEUTROPHILS % 92 % (40-70)
[2019-07-13] MEDS ORDERED: PERMETHRIN LOTION 1% 59ML BOTTLE TP SCH (09:00)
[2019-07-13] MEDS: PAROXETINE HCL 20 MG TABLET PO SCH (10:46)
[2019-07-13] MEDS: POLYETHYLENE GLYCOL 3350 17 GM POWD.PACK PO SCH (10:46)
[2019-07-13] MEDS: ENOXAPARIN SODIUM 30 MG/0.3 ML SQ SCH (10:47)
[2019-07-13] MEDS: PANTOPRAZOLE SODIUM 40 MG TABLET.DR PO SCH ×2 (10:47→19:59)
[2019-07-13] MEDS: LEVOFLOXACIN 500 MG TABLET PO SCH (10:48)
[2019-07-13] MEDS: DEXAMETHASONE 4 MG TAB PO SCH (10:48)
[2019-07-13] MEDS: TRAZODONE HCL 100 MG TABLET PO SCH ×3 (11:03→19:56)
--- NOTE | 2019-07-13 11:30 | NUR ---
[facility]- REFERRAL SUAD PHILLIP SPOKE TO [facility] REP TODAY - FEELS THIS IS A GOOD CANDIDATE- MARJAN IS PENDI
[2019-07-13] MEDS: ACETAMINOPHEN 325 MG TAB PO PRN (20:19)
[2019-07-13] MEDS: HONEY 1 APPL/ML TUBE TP SCH (21:47)
--- NOTE | 2019-07-13 22:00 | NUR ---
RT BUTTOCK ULCER Rt buttock ulcer appears hardened,indurated with yellowish center.Pt c/o of pain to area,cleansed with Ns,medihoney applied,covered with Allevyn dressing.Binta well.Pt respositioned in bed q 2 hrs,on waffle mattress.Kept diaper clean and dry at all times.
[2019-07-14 04:00] VITALS: BP 142/62
[2019-07-14] MEDS: GUAIFENESIN-DM 200/20 MG 10 ML PO SCH ×5 (04:54→21:39)
[2019-07-14] MEDS: ONDANSETRON HCL 4 MG/2 ML VIAL IV PRN (04:57)
[2019-07-14] MEDS: LEVOTHYROXINE 150 MCG TABLET PO SCH (05:57)
[2019-07-14 06:10] LABS: HEMATOCRIT 34.1 % (36-48); MEAN CORPUSCULAR HEMOGLOBIN 30.1 pg (27.0-33.0); MEAN CORPUSCULAR HGB CONC 34.2 g/dL (32.0-36.0); MEAN CORPUSCULAR VOLUME 88.1 fL (79-99); PLATELET COUNT (AUTO) 353 K/uL (130-400); RED BLOOD CELL COUNT(AUTO) 3.87 MIL/uL (4.00-5.50); RED CELL DISTRIBUTION WIDTH 14.2 % (11.0-15.5)
[2019-07-14 06:14] LABS: CREATININE 0.7 mg/dL (0.5-1.5)
[2019-07-14] MEDS: IPRATROPIUM 0.5 MG/2.5 ML INH IH SCH ×4 (06:17→23:19)
[2019-07-14] MEDS: INSULIN HUMULIN R 100 UNIT/ML 3ML SQ SCH ×4 (06:38→21:44)
[2019-07-14 07:30] VITALS: BP 173/103
[2019-07-14 08:18] LABS: BAND NEUTROPHILS % (MANUAL) 2 % (0-2); LYMPHOCYTES % (MANUAL) 14 % (22-44); MONOCYTES % (MANUAL) 4 % (2-9); PLATELET MORPHOLOGY COMMENT ADEQUATE; SEGMENTED NEUTROPHILS % 80 % (40-70)
[2019-07-14 11:00] VITALS: BP 163/87
[2019-07-14] MEDS: POLYETHYLENE GLYCOL 3350 17 GM POWD.PACK PO SCH (11:21)
[2019-07-14] MEDS: TRAZODONE HCL 100 MG TABLET PO SCH ×3 (11:22→21:39)
[2019-07-14] MEDS: DEXAMETHASONE 4 MG TAB PO SCH (11:22)
[2019-07-14] MEDS: PAROXETINE HCL 20 MG TABLET PO SCH (11:22)
[2019-07-14] MEDS: LEVOFLOXACIN 500 MG TABLET PO SCH (11:23)
[2019-07-14] MEDS: PANTOPRAZOLE SODIUM 40 MG TABLET.DR PO SCH ×2 (11:23→21:39)
[2019-07-14] MEDS: HONEY 1 APPL/ML TUBE TP SCH (11:23)
[2019-07-14] MEDS: ENOXAPARIN SODIUM 30 MG/0.3 ML SQ SCH (11:25)
--- NOTE | 2019-07-14 15:50 | NUR ---
DX: FALL, UTI. DIET: GI SOFT/ BLAND, 60GMCCD. LABS: CO2 35, RG 195, Ca 7.8, ALB 1.5. MEDS: MIRALAX, ROBITUSSIN, SYNTHROID, PROTONIX, PAXIL, HUMULIN R, LOVENOX, LACTULOSE, ZOFRAN, TYLENOL. SKIN: RIGHT BUTTOCKS ULCER. LBM: 07/13/19. PT CONTINUES WITH POOR PO <25%. PT COMPLAINS OF FEELING FULL, BLOATED, PAIN, NAUSEA, AND HEART BURN. PT HAS POOR APPETITE. PT DOES NOT LIKE GLUCERNA AND FEELS IT IS TOO THICK. PT ATE 1 SCOOP OF SCRAMBLED EGGS AND A SIP OF COFFEE THIS MORNING. PT COULD NOT RECALL DINNER INTAKE FROM YESTERDAY. PT EXPERIENCING HEART BURN. RD RECOMMENDS TO CONTINUE CURRENT DIET, DO NOT GIVE PT COFFEE DUE TO HEART BURN. RECOMMEND ALTERNATE MEANS OF NUTRITION DUE TO POOR PO PRIOR TO AND SINCE ADMISSION <25%. RD WILL CONTINUE TO MONITOR AND FOLLOW UP NEEDED. THANK YOU. Addendum: 07/14/19 at [address] Amended: Links added.
--- NOTE | 2019-07-14 15:55 | NUR ---
SISTER DEANA Received call from sister Deana He. Stated to call with any question or information or changes to . Patient approves that any information can be shared with sister Deana. Deana was updated on patient's status and that acceptance to [facility] is pending.
[2019-07-14 16:00] VITALS: BP 176/98
--- NOTE | 2019-07-14 17:16 | NUR ---
[facility] CONSULT PATIENT ASSESSED REQUESTED: PATIENT PRESENTS WITH STAGE II PRESSURE ULCER TO RIGHT BUTTOCK; [facility] RECOMMENDATIONS SUBMITTED. Addendum: 07/14/19 at 1717 by DELMER VILLANUEVA LVN LVN W Amended: Links added.
--- NOTE | 2019-07-14 19:01 | NUR ---
WOUND PICTURES Took wound pictures and filed under Miscellaneous tab in chart. Changed dressing, put medihoney and new allevyn patch.
[2019-07-14 20:00] VITALS: BP 178/100
[2019-07-15] VITALS: BP 100/95
[2019-07-15 04:00] VITALS: BP 164/96
[2019-07-15] MEDS: GUAIFENESIN-DM 200/20 MG 10 ML PO SCH ×5 (05:17→23:39)
[2019-07-15 05:24] LABS: BASOPHILS % (AUTO) 0.1 % (0.0-5.0); EOSINOPHILS % (AUTO) 0.1 % (0.0-8.0); HEMATOCRIT 33.6 % (36-48); LYMPHOCYTES % (AUTO) 5.1 % (21.0-51.0); MEAN CORPUSCULAR HEMOGLOBIN 29.9 pg (27.0-33.0); MEAN CORPUSCULAR HGB CONC 33.6 g/dL (32.0-36.0); MEAN CORPUSCULAR VOLUME 88.9 fL (79-99); MONOCYTES % (AUTO) 1.9 % (3.0-13.0); NEUTROPHILS % (AUTO) 92.8 % (40.0-77.0); PLATELET COUNT (AUTO) 364 K/uL (130-400); RED BLOOD CELL COUNT(AUTO) 3.77 MIL/uL (4.00-5.50); RED CELL DISTRIBUTION WIDTH 14.3 % (11.0-15.5); WHITE BLOOD COUNT (AUTO) 10.3 K/uL (4.8-10.8)
[2019-07-15 05:33] LABS: CREATININE 0.7 mg/dL (0.5-1.5); POTASSIUM 4.4 mmol/L (3.5-5.1)
[2019-07-15] MEDS: LEVOTHYROXINE 150 MCG TABLET PO SCH (05:59)
[2019-07-15] MEDS: IPRATROPIUM 0.5 MG/2.5 ML INH IH SCH ×4 (06:12→23:04)
[2019-07-15] MEDS: INSULIN HUMULIN R 100 UNIT/ML 3ML SQ SCH ×4 (06:39→21:31)
[2019-07-15 07:00] VITALS: BP 150/92
[2019-07-15] MEDS ORDERED: TRAZODONE HCL 50 MG TAB ONE ×2 (08:23→15:37)
[2019-07-15] MEDS: PANTOPRAZOLE SODIUM 40 MG TABLET.DR PO SCH ×2 (08:30→21:24)
[2019-07-15] MEDS: DEXAMETHASONE 4 MG TAB PO SCH (08:30)
[2019-07-15] MEDS: PAROXETINE HCL 20 MG TABLET PO SCH (08:30)
[2019-07-15] MEDS: TRAZODONE HCL 100 MG TABLET PO SCH ×3 (08:31→21:24)
[2019-07-15] MEDS: POLYETHYLENE GLYCOL 3350 17 GM POWD.PACK PO SCH (08:32)
[2019-07-15] MEDS: ENOXAPARIN SODIUM 30 MG/0.3 ML SQ SCH (08:32)
[2019-07-15] MEDS: HONEY 1 APPL/ML TUBE TP SCH (08:33)
[2019-07-15] MEDS: LEVOFLOXACIN 500 MG TABLET PO SCH (11:23)
[2019-07-15 12:00] VITALS: BP 155/98
[2019-07-15] MEDS ORDERED: LISINOPRIL 5 MG TABLET ONE (12:12)
[2019-07-15] MEDS: LISINOPRIL 10 MG TABLET PO SCH (12:15)
[2019-07-15] MEDS: HYDROCHLOROTHIAZIDE 25 MG TABLET PO SCH (12:19)
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
[2019-07-15 16:00] VITALS: BP 167/89
[2019-07-15 19:25] VITALS: BP 150/94
[2019-07-16 00:20] VITALS: BP 149/73
[2019-07-16 04:14] VITALS: BP 165/97
[2019-07-16] MEDS ORDERED: HYDRALAZINE HCL 20 MG/ML VIAL IV PRN (04:45)
[2019-07-16] MEDS ORDERED: HYDRALAZINE HCL 20 MG/ML VIAL ONE (05:02)
[2019-07-16] MEDS: GUAIFENESIN-DM 200/20 MG 10 ML PO SCH ×4 (05:05→21:57)
[2019-07-16] MEDS: LEVOTHYROXINE 150 MCG TABLET PO SCH (05:05)
[2019-07-16] MEDS: IPRATROPIUM 0.5 MG/2.5 ML INH IH SCH ×4 (05:13→23:28)
[2019-07-16 05:50] LABS: THYROID STIMULATING HORMONE 27.65 uIU/mL (0.36-3.74)
[2019-07-16] MEDS: INSULIN HUMULIN R 100 UNIT/ML 3ML SQ SCH ×4 (06:51→21:56)
[2019-07-16 08:00] VITALS: BP 152/90
[2019-07-16] MEDS: POLYETHYLENE GLYCOL 3350 17 GM POWD.PACK PO SCH (08:35)
[2019-07-16] MEDS: HYDROCHLOROTHIAZIDE 25 MG TABLET PO SCH (08:36)
[2019-07-16] MEDS: METFORMIN HCL 500 MG TABLET PO SCH ×3 (08:36→16:47)
[2019-07-16] MEDS: PAROXETINE HCL 20 MG TABLET PO SCH (08:37)
[2019-07-16] MEDS: LISINOPRIL 10 MG TABLET PO SCH (08:37)
[2019-07-16] MEDS: PANTOPRAZOLE SODIUM 40 MG TABLET.DR PO SCH ×2 (08:37→21:49)
[2019-07-16] MEDS: ENOXAPARIN SODIUM 30 MG/0.3 ML SQ SCH (08:38)
[2019-07-16] MEDS: TRAZODONE HCL 100 MG TABLET PO SCH ×3 (08:38→21:49)
[2019-07-16] MEDS: HONEY 1 APPL/ML TUBE TP SCH (08:39)
[2019-07-16 11:00] VITALS: BP 90/63
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
[2019-07-16] MEDS ORDERED: METF-444 PO (12:18)
[2019-07-16] MEDS ORDERED: TRAZ-221 PO (12:18)
[2019-07-16] MEDS ORDERED: PARO-66 PO (12:18)
[2019-07-16] MEDS ORDERED: LEVO150 PO (12:18)
[2019-07-16] MEDS ORDERED: HYDR25TA PO (12:18)
[2019-07-16] MEDS ORDERED: PANT40TA PO (12:18)
[2019-07-16] MEDS ORDERED: LISI-613 PO (12:18)
[2019-07-16] MEDS: LEVOFLOXACIN 500 MG TABLET PO SCH (12:32)
--- NOTE | 2019-07-16 12:55 | NUR ---
PT CHANGE IN CONDITION PT REQUESTED TO BE MOVED TO BED TO LAY DOWN SHE HAD BEEN SITIING FOR 1 HOUR ALREADY AND STATED THAT WAS THE MINIMUM TIME PT VOICED TO REMAIN IN CHAIR. THIS NURSE ALERTED CONSULTING SOFTWARE ENGINEER TO ASSIST PT. CONSULTING SOFTWARE ENGINEER ENTERED ROOM TO ASSIST PT. CONSULTING SOFTWARE ENGINEER CAME OUT OF ROOM STATING PT DOES NOT ASSIST WITH TRANSFER AND 2 PEOPLE WILL BE NEEDED. CONSULTING SOFTWARE ENGINEER X3 ENTERED ROOM TO TRANSFER PT TO WHICH PT STARTED SCREAMING AND CRYING "I CANT I CANT". THIS NURSE ENTERED ROOM TO ASSESS PT. PT STATES SHE IS UNABLE TO BEAR WEIGHT AT THIS TIME. CONSULTING SOFTWARE ENGINEER PAGED PHYSICAL THERAPY TO ASSIST. PT TECH X 2 WERE ABLE TO ASSIST PT TO BED. REGISTERED NURSE MATERNAL CHILD KAYE MADE AWARE OF SITUATION DR RANGEL HAD ALREADY MOTIONED TO DC PT. PENDING NEXT STEPS
--- NOTE | 2019-07-16 12:55 | NUR ---
PATIENT OBJECTIONS WAS ADVISED BY PT PERSONNEL THAT PATIENT HAD A VERY GOOD MORNING- WALKED 6 FEET WITH ONE PERSON MOD ASSIST & WALKER THIS! VERY TERRIFIC PROGRESS ADVISED MD- WHO STATES SHE COULD BE DISCHARGED TO HOME CALL TO DAUGHTER WHO STATES SHE CANCOME GET HER MOM THIS EVENING ADVISED PT, PT VERY UPSET THAT SHE CANNOT GO TO A FACILITY FOR REHAB; STATES IF NOT WANTS TO GO TO A LONGTERM. PT NEEDING TO GO BACK TO BED. TAR POT MAN ADVISED THAT PT WILL NOT HELP HERSELF TO GET BACK TO BED. SEE RN NOTES FOR MORE DETAILS, THIS CM WHEN TO TALK TO HER AND ASSIST TAR POT MAN- WEIGHT. UNSUE WHY PT HAS DECLINED IN ABLITY SO SUDDENLY
--- NOTE | 2019-07-16 14:50 | NUR ---
DECISION PER CM ON BEHALF OF DR RANGEL PT OK TO DISCHARGE AND FOLLOW UP WITH PCP DR FAINA SHABAZZ 07/17 (PENDING TIME), APS, HOME HEALTH. DISCHARGE ORDERS HAVE BEEN INITIATED.
--- NOTE | 2019-07-16 15:04 | NUR ---
PREPARATION FOR DISCHARGE 1. CALL MADE TO DR. SHABAZZ' OFFICE FOR APPT FOR HOME HEALTH FOR BUTTOCK ULCER AND FOR 1045 TOMORROW MORNING 2. CALL TO RICKY SHABAZZ APS WORKER [phone], PREVIOUSLY HAD STATED THAT PT NEEDE TO BE HOME TO SCHEDULE A HOME VISIT FOR PROVIDER SERVICES LEFT MESSAGE, PENDING CALL BACK 3. CALL TO [facility] TO SCHEDULE AN APPT. SPOKE TO KEM, SET UP FOR APPT-July 0730 AM HAS TO RE DO HER INTAKE APPT BE SURE TO BRING ID, SOCIAL, INSURANCE, AND INCOME , THIS IS A 3-4 HOURS PROCESS
[2019-07-16 16:00] VITALS: BP 141/77
--- NOTE | 2019-07-16 17:11 | NUR ---
RD FOLLOW UP NOTE Pt remains with poor PO. Upon visit, Pt reports good appetite, however altered taste and some throat pain. Pt willing to try 30mL ProMod TID and Dov BID. Recommend to add Vitamin C, ZnSO4 daily for wound healing support. Pt LBM 07/16/19. Pt monitored labs: Glu 240TSH 27.65, Na 134, Cl 95, CO2 34, Ca 7.6. RD to update diet modifications. RD to continue to monitor. Please notify as additional nutrition concerns arise. Thank you. Addendum: 07/16/19 at [address] Amended: Links added.
--- NOTE | 2019-07-16 17:20 | NUR ---
DISCHARGE HELD CALL TO [facility] SCHEDULED TO BE DELIVERED WENT IN TO ROOM TO TALK TO PATIENT ABOUT GOING HOME AND WHAT HAS BEEN SET UP FOR HER- PT WAS ON OXYGEN. ASKED OIL SCOUT- STATES PT WAS SATING 86 AND PT TOLD HER SHE NEEDED HER OXYGEN ON. , SO IT WAS REPLACE AND NOW PT IS 92%. ADVISED PT AND DAUGHTER RE ISPRIOMETRY Q [address] RANGEL. DC CANCELLED.
[2019-07-16] MEDS ORDERED: FUROSEMIDE 10 MG/ML 2ML VIAL ONE (18:41)
[2019-07-16] MEDS: FUROSEMIDE 10 MG/ML 2ML VIAL IV SCH (18:49)
[2019-07-16 19:20] VITALS: BP 151/87
[2019-07-17 00:03] VITALS: BP 158/90
[2019-07-17] MEDS: FUROSEMIDE 10 MG/ML 2ML VIAL IV SCH ×3 (02:46→17:15)
[2019-07-17 04:22] VITALS: BP 120/76
[2019-07-17] MEDS: INSULIN HUMULIN R 100 UNIT/ML 3ML SQ SCH ×4 (06:06→21:00)
[2019-07-17] MEDS: GUAIFENESIN-DM 200/20 MG 10 ML PO SCH ×4 (06:10→23:00)
[2019-07-17] MEDS: LEVOTHYROXINE 150 MCG TABLET PO SCH (06:10)
[2019-07-17] MEDS: IPRATROPIUM 0.5 MG/2.5 ML INH IH SCH ×4 (06:27→23:10)
[2019-07-17 08:00] VITALS: BP 143/77
[2019-07-17] MEDS: METFORMIN HCL 500 MG TABLET PO SCH ×3 (08:49→17:15)
[2019-07-17] MEDS: PANTOPRAZOLE SODIUM 40 MG TABLET.DR PO SCH ×2 (08:49→21:17)
[2019-07-17] MEDS: HYDROCHLOROTHIAZIDE 25 MG TABLET PO SCH (08:49)
[2019-07-17] MEDS: TRAZODONE HCL 100 MG TABLET PO SCH ×3 (08:50→21:17)
[2019-07-17] MEDS: POLYETHYLENE GLYCOL 3350 17 GM POWD.PACK PO SCH (08:50)
[2019-07-17] MEDS: PAROXETINE HCL 20 MG TABLET PO SCH (08:50)
[2019-07-17] MEDS: LISINOPRIL 20 MG TABLET PO SCH (08:50)
[2019-07-17] MEDS: ENOXAPARIN SODIUM 30 MG/0.3 ML SQ SCH (08:51)
[2019-07-17] MEDS: HONEY 1 APPL/ML TUBE TP SCH (08:51)
--- NOTE | 2019-07-17 11:00 | NUR ---
PT NOTE: PATIENT PRESENTS WITH IMPROVED PARTICIPATION AND STRENGTH TO LE'S DURING TODAY'S TX VS PREVIOUS TX'S. PATIENT REQUIRES MOD ASSISTX2 FOR SUPINE-SIT TRANSFER AND MOD/MIN ASSISTX2 FOR SIT-STAND AND TRANSITION STEPS TO CHAIR. PATIENT WILL BENEFIT FROM CONTINUED PT TX TO ASSIST IN IMPROVING PATIENTS FUNCTIONAL MOBILITY PRIOR TO D/C HOME. Addendum: 07/17/19 at 1123 by RENETTA CRUZ PT Amended: Links added.
--- NOTE | 2019-07-17 11:07 | NUR ---
NEW DC PLAN PT STILL DE SATTING ON ROOM AIR, NEEDED BIPAP OVER NIGHT SEE RT NOTES ORDER RECD FOR [facility] AND DISCUSSED WITH PATIENT. PT WILLING TO WORK WITH PT. ORDER PLACED AND CALLL MADE TO [facility] FOR EVAL. HOPEFUL PT WILL BE DISCHARGED TODAY TO [facility] TO CONTINUE HER RECOVERY PT WORKING WITH PT RIGHT NOW
[2019-07-17 12:00] VITALS: BP 107/74
[2019-07-17 14:36] LABS: ABG BASE EXCESS 10.4 mmol/L (-2.0-3.0); ABG HCO3 35.8 mmol/L (21.0-28.0); ABG OXYGEN SATURATION 87.1 % (95.0-99.0); ABG PCO2 50 mmHg (32-45)
[2019-07-17 16:45] VITALS: BP 138/81
--- NOTE | 2019-07-17 17:30 | NUR ---
AUTH IN PROCESS FOR NR PRE AUTH FORM SIGNED BY DR. RANGEL AND SENT /FAXED TO NR/LYND[facility]Y.
[2019-07-17 20:00] VITALS: BP 131/80
[2019-07-18] VITALS (7 sets, daily range): BP systolic 134–157; BP diastolic 72–82
[2019-07-18] MEDS: GUAIFENESIN-DM 200/20 MG 10 ML PO SCH ×4 (04:10→21:50)
[2019-07-18] MEDS: IPRATROPIUM 0.5 MG/2.5 ML INH IH SCH ×4 (06:18→23:11)
[2019-07-18] MEDS: INSULIN HUMULIN R 100 UNIT/ML 3ML SQ SCH ×4 (06:34→21:00)
[2019-07-18] MEDS: LEVOTHYROXINE 150 MCG TABLET PO SCH (06:36)
[2019-07-18] MEDS: PANTOPRAZOLE SODIUM 40 MG TABLET.DR PO SCH ×2 (09:08→21:46)
[2019-07-18] MEDS: POLYETHYLENE GLYCOL 3350 17 GM POWD.PACK PO SCH (09:08)
[2019-07-18] MEDS: TRAZODONE HCL 100 MG TABLET PO SCH ×3 (09:09→21:46)
[2019-07-18] MEDS: METFORMIN HCL 500 MG TABLET PO SCH ×3 (09:09→16:52)
[2019-07-18] MEDS: HYDROCHLOROTHIAZIDE 25 MG TABLET PO SCH (09:09)
[2019-07-18] MEDS: LISINOPRIL 20 MG TABLET PO SCH (09:10)
[2019-07-18] MEDS: ENOXAPARIN SODIUM 30 MG/0.3 ML SQ SCH (09:10)
[2019-07-18] MEDS: PAROXETINE HCL 20 MG TABLET PO SCH (09:11)
[2019-07-18] MEDS: HONEY 1 APPL/ML TUBE TP SCH (09:14)
[2019-07-18 10:47] LABS: BASOPHILS % (AUTO) 1.3 % (0.0-5.0); EOSINOPHILS % (AUTO) 1.7 % (0.0-8.0); HEMATOCRIT 29.2 % (36-48); LYMPHOCYTES % (AUTO) 9.4 % (21.0-51.0); MEAN CORPUSCULAR HEMOGLOBIN 30.3 pg (27.0-33.0); MEAN CORPUSCULAR HGB CONC 34.2 g/dL (32.0-36.0); MEAN CORPUSCULAR VOLUME 88.6 fL (79-99); MONOCYTES % (AUTO) 5.1 % (3.0-13.0); NEUTROPHILS % (AUTO) 82.5 % (40.0-77.0); PLATELET COUNT (AUTO) 314 K/uL (130-400); RED BLOOD CELL COUNT(AUTO) 3.29 MIL/uL (4.00-5.50); WHITE BLOOD COUNT (AUTO) 9.7 K/uL (4.8-10.8)
[2019-07-18 11:11] LABS: ALBUMIN 1.7 g/dL (3.5-5.0); CREATININE 0.6 mg/dL (0.5-1.5); THYROID STIMULATING HORMONE 23.94 uIU/mL (0.36-3.74)
[2019-07-18] MEDS ORDERED: POTASSIUM CHLORIDE 10% ELIXIR 20 MEQ/15 ML UDCUP PO PRN (12:00)
[2019-07-18] MEDS ORDERED: MAGNESIUM 2GM PREMIX 50ML 50 ML IV PRN (12:00)
[2019-07-18] MEDS ORDERED: LIDOCAINE HCL-MPF 1% 2ML VIAL IV PRN (12:00)
[2019-07-18] MEDS ORDERED: POTASSIUM CHLORIDE 20MEQ/100ML 100 ML IV PRN (12:00)
[2019-07-18] MEDS: FUROSEMIDE 10 MG/ML 2ML VIAL IV SCH ×2 (12:05→18:22)
[2019-07-18 12:12] LABS: B-TYPE NATRIURETIC PEPTIDE 65 pg/mL (0-100)
[2019-07-18] MEDS: MEGESTROL 400 MG/10 ML UDCUP PO SCH (12:20)
[2019-07-18] MEDS: POTASSIUM CHLORIDE 20 MEQ ERTAB PO PRN ×2 (18:23→21:47)
[2019-07-19] MEDS: POTASSIUM CHLORIDE 20 MEQ ERTAB PO PRN ×4 (00:21→18:12)
[2019-07-19] MEDS: FUROSEMIDE 10 MG/ML 2ML VIAL IV SCH ×3 (02:53→18:13)
[2019-07-19 03:00] VITALS: BP 147/89
[2019-07-19] MEDS: GUAIFENESIN-DM 200/20 MG 10 ML PO SCH ×4 (05:01→23:05)
[2019-07-19 05:37] LABS: HEMATOCRIT 28.8 % (36-48); MEAN CORPUSCULAR HEMOGLOBIN 30.1 pg (27.0-33.0); MEAN CORPUSCULAR HGB CONC 34.4 g/dL (32.0-36.0); MEAN CORPUSCULAR VOLUME 87.6 fL (79-99); PLATELET COUNT (AUTO) 299 K/uL (130-400); RED BLOOD CELL COUNT(AUTO) 3.28 MIL/uL (4.00-5.50); RED CELL DISTRIBUTION WIDTH 14.4 % (11.0-15.5); WHITE BLOOD COUNT (AUTO) 9.5 K/uL (4.8-10.8)
[2019-07-19 06:10] LABS: CREATININE 0.6 mg/dL (0.5-1.5); POTASSIUM 3.8 mmol/L (3.5-5.1)
[2019-07-19] MEDS: INSULIN HUMULIN R 100 UNIT/ML 3ML SQ SCH ×4 (06:15→21:27)
[2019-07-19] MEDS: IPRATROPIUM 0.5 MG/2.5 ML INH IH SCH ×4 (06:22→23:22)
[2019-07-19] MEDS: LEVOTHYROXINE 150 MCG TABLET PO SCH (06:31)
[2019-07-19 07:30] VITALS: BP 147/88
[2019-07-19] MEDS: METFORMIN HCL 500 MG TABLET PO SCH ×3 (07:53→16:48)
[2019-07-19] MEDS: HONEY 1 APPL/ML TUBE TP SCH (07:55)
[2019-07-19] MEDS: MEGESTROL 400 MG/10 ML UDCUP PO SCH (08:43)
[2019-07-19] MEDS: TRAZODONE HCL 100 MG TABLET PO SCH ×3 (08:50→21:24)
[2019-07-19] MEDS: PAROXETINE HCL 20 MG TABLET PO SCH (08:51)
[2019-07-19] MEDS: POLYETHYLENE GLYCOL 3350 17 GM POWD.PACK PO SCH (08:51)
[2019-07-19] MEDS: PANTOPRAZOLE SODIUM 40 MG TABLET.DR PO SCH ×2 (08:51→21:24)
[2019-07-19] MEDS: LISINOPRIL 20 MG TABLET PO SCH (08:51)
[2019-07-19] MEDS: HYDROCHLOROTHIAZIDE 25 MG TABLET PO SCH (08:51)
[2019-07-19] MEDS: ENOXAPARIN SODIUM 30 MG/0.3 ML SQ SCH (08:52)
[2019-07-19 11:00] VITALS: BP 140/86
[2019-07-19 16:00] VITALS: BP 158/88
[2019-07-19] MEDS: ZOSYN 3.375GM+NS 50ML 50 ML IV SCH (16:41)
[2019-07-19 20:16] VITALS: BP 161/95
[2019-07-19 23:43] VITALS: BP 101/65
[2019-07-20] VITALS (8 sets, daily range): BP systolic 86–156; BP diastolic 57–88
[2019-07-20] MEDS: ZOSYN 3.375GM+NS 50ML 50 ML IV SCH ×3 (00:43→16:52)
[2019-07-20] MEDS: FUROSEMIDE 10 MG/ML 2ML VIAL IV SCH (02:51)
[2019-07-20] MEDS: GUAIFENESIN-DM 200/20 MG 10 ML PO SCH ×4 (04:45→22:45)
--- NOTE | 2019-07-20 04:57 | NUR ---
BIPAP Pt sleeping,tolerating bipap well.No cough noted.
[2019-07-20] MEDS: LEVOTHYROXINE 150 MCG TABLET PO SCH (06:08)
[2019-07-20] MEDS: INSULIN HUMULIN R 100 UNIT/ML 3ML SQ SCH ×5 (06:09→21:00)
[2019-07-20] MEDS: IPRATROPIUM 0.5 MG/2.5 ML INH IH SCH ×4 (06:58→23:24)
[2019-07-20] MEDS: MEGESTROL 400 MG/10 ML UDCUP PO SCH (08:42)
[2019-07-20] MEDS: METFORMIN HCL 500 MG TABLET PO SCH ×3 (08:42→16:52)
[2019-07-20] MEDS: PANTOPRAZOLE SODIUM 40 MG TABLET.DR PO SCH ×2 (08:42→21:58)
[2019-07-20] MEDS: HYDROCHLOROTHIAZIDE 25 MG TABLET PO SCH (08:42)
[2019-07-20] MEDS: POLYETHYLENE GLYCOL 3350 17 GM POWD.PACK PO SCH (08:42)
[2019-07-20] MEDS: LISINOPRIL 20 MG TABLET PO SCH (08:43)
[2019-07-20] MEDS: ENOXAPARIN SODIUM 30 MG/0.3 ML SQ SCH (08:44)
--- NOTE | 2019-07-20 08:45 | NUR ---
Right buttock ulcer cleansed with NS, patted dry, applied medihoney, and ALlyvn foam. pt tolerated well.
[2019-07-20] MEDS: TRAZODONE HCL 100 MG TABLET PO SCH ×3 (08:46→21:59)
[2019-07-20] MEDS: PAROXETINE HCL 20 MG TABLET PO SCH (08:52)
[2019-07-20] MEDS: HONEY 1 APPL/ML TUBE TP SCH ×2 (08:52→22:00)
[2019-07-20 08:54] LABS: ABG HCO3 40.4 mmol/L (21.0-28.0); ABG OXYGEN SATURATION 83.7 % (95.0-99.0); ABG PCO2 46 mmHg (32-45)
--- NOTE | 2019-07-20 10:45 | NUR ---
DISCUSSION WITH INSURANCE HAD CALL TRANSFERRED TO THIS CM'S PHONE FORM INSURANCE- ASKING RE PLAN FOR CARE. ADVISED JAYE THAT PT WAS GOING TO [facility]; STILL NEEDS WOUND CARE AND HAS OXYGEN NEEDS, AND PULMONARY CARE JAYE STATED THAT THE AUTH WAS STILL OPEN FROM [facility] AND THAT SHE WOULD CALL THEM TO WITHDRAW IT. ADVISED SHE HAS NOT YET RECD AN AUTH REQUEST FROM [facility]. SPOKE AT LENGTH W INSURANCE REP- ADVISED HER THAT PT IS NOT SAFE TO D/C HOME, AND NEEDS THE CONTINUED CARE IN A SNF; ASKED IF I COULD GET THE AUTH TODAY? WILL FOLLOW
--- NOTE | 2019-07-20 13:47 | NUR ---
RD Follow Up Note Pt has been tolerating current diet. Upon visit, Pt reports dislikes [place] ice. Pt also dislikes jello, but likes pudding. RD encouraged Pt to consume protein supplements (30mL ProMod TID, Dov BID), Pt agrees to consume. Pt PO intake:50%. Pt LBM 07/19/19. Pt monitored labs: H/H 9.9/28.8, Glu 151, Na 133, Cl 93, CO2 39, Glu 142, Ca 7.3. RD to continue to monitor. Please notify RD as additional nutrition concerns arise. Thank you. Addendum: 07/20/19 at [address] Amended: Links added.
--- NOTE | 2019-07-20 15:24 | NUR ---
Rounding on patient and pt asleep.
--- NOTE | 2019-07-20 16:51 | NUR ---
[facility] consult Patient assessed as ordered. [facility] recommendation to continue medihoney and allevyn life foam. Also recommended consult by Dr. Aleksey Dean from [facility] for bedside debridement. Report given to charge nurseWinter RN. Addendum: 07/20/19 at 1652 by PAT CUEVAS RN/ Amended: Links added.
--- NOTE | 2019-07-20 17:24 | NUR ---
RECD CALL FROM [facility] CALL RECD FORM LYNDSAY AT [facility]. STATES SHE SPOKE TO THE REP AT [facility], JAYE , WHO STATES THAT 'A JORJE TOLD HER THE PATIENT WAS *NOT* GOING TO [facility], THE PATIENT WAS GOING HOME" THIS CM DOES NOT KNOW A JORJE AT THIS FACILITY WHO WOULD HAVE TALKED TO THE REP. [facility] DENIED [facility]. WILL WORK IN THE AM TO GET THE DISCREPANCY RESOLVED Addendum: 07/20/19 at 1732 by SALINA BRAUN RN Amended: Links added.
--- NOTE | 2019-07-20 17:41 | NUR ---
Right buttock ulcer cleansed with NS, patted dry, applied medihoney, and ALlyvn foam. pt tolerated well.
[2019-07-21] MEDS: ZOSYN 3.375GM+NS 50ML 50 ML IV SCH ×4 (01:11→23:46)
[2019-07-21 03:37] VITALS: BP 130/79
[2019-07-21] MEDS: GUAIFENESIN-DM 200/20 MG 10 ML PO SCH ×4 (04:45→22:44)
--- NOTE | 2019-07-21 05:40 | NUR ---
CONTACT PRECAUTION While Missile [employer] Missile Checkout Technician was bathing pt,noted lice from her hair,placed pt on Contact precaution. Addendum: 07/21/19 at 0541 by ANGELY RIVERA RN RN Amended: Links added.
[2019-07-21] MEDS: INSULIN HUMULIN R 100 UNIT/ML 3ML SQ SCH ×4 (05:47→21:00)
[2019-07-21] MEDS: LEVOTHYROXINE 150 MCG TABLET PO SCH (05:57)
[2019-07-21 06:23] LABS: BASOPHILS % (AUTO) 1.9 % (0.0-5.0); EOSINOPHILS % (AUTO) 1.5 % (0.0-8.0); HEMATOCRIT 27.4 % (36-48); LYMPHOCYTES % (AUTO) 14.1 % (21.0-51.0); MEAN CORPUSCULAR HGB CONC 34.2 g/dL (32.0-36.0); MEAN CORPUSCULAR VOLUME 87.7 fL (79-99); MONOCYTES % (AUTO) 8.1 % (3.0-13.0); NEUTROPHILS % (AUTO) 74.4 % (40.0-77.0); PLATELET COUNT (AUTO) 266 K/uL (130-400); RED BLOOD CELL COUNT(AUTO) 3.12 MIL/uL (4.00-5.50); RED CELL DISTRIBUTION WIDTH 14.2 % (11.0-15.5); WHITE BLOOD COUNT (AUTO) 7.7 K/uL (4.8-10.8)
[2019-07-21] MEDS: IPRATROPIUM 0.5 MG/2.5 ML INH IH SCH ×4 (06:27→23:32)
[2019-07-21 06:51] LABS: ALBUMIN 1.8 g/dL (3.5-5.0); MAGNESIUM 1.4 mg/dL (1.80-2.40); PHOSPHORUS 3.5 mg/dL (2.5-4.9); POTASSIUM 4.1 mmol/L (3.5-5.1); THYROID STIMULATING HORMONE 21.31 uIU/mL (0.36-3.74)
[2019-07-21 08:29] VITALS: BP 153/82
[2019-07-21] MEDS ORDERED: MAGNESIUM 2GM PREMIX 50ML 50 ML IV PRN (09:00)
[2019-07-21] MEDS: PANTOPRAZOLE SODIUM 40 MG TABLET.DR PO SCH ×2 (11:18→21:40)
[2019-07-21] MEDS: LISINOPRIL 40 MG TABLET PO SCH (11:18)
[2019-07-21] MEDS: MEGESTROL 400 MG/10 ML UDCUP PO SCH (11:18)
[2019-07-21] MEDS: TRAZODONE HCL 100 MG TABLET PO SCH ×3 (11:19→21:40)
[2019-07-21] MEDS: HYDROCHLOROTHIAZIDE 25 MG TABLET PO SCH (11:19)
[2019-07-21] MEDS: PAROXETINE HCL 20 MG TABLET PO SCH (11:19)
[2019-07-21] MEDS: METFORMIN HCL 500 MG TABLET PO SCH ×4 (11:19→23:46)
[2019-07-21] MEDS: POLYETHYLENE GLYCOL 3350 17 GM POWD.PACK PO SCH (11:20)
[2019-07-21] MEDS: ENOXAPARIN SODIUM 30 MG/0.3 ML SQ SCH (11:20)
[2019-07-21] MEDS: HONEY 1 APPL/ML TUBE TP SCH ×2 (11:28→21:00)
[2019-07-21 11:49] VITALS: BP 143/79
[2019-07-21] MEDS ORDERED: SODIUM CHLORIDE 0.9% 100 ML IV ONE (11:59)
[2019-07-21] MEDS ORDERED: IOHEXOL-350 75 ML VIAL IV ONE (15:12)
--- NOTE | 2019-07-21 15:30 | NUR ---
PT STILL NOT ACCEPTED BY NR INSURANCE HAS CONFLICTING INFORMATION RE REQUESTS FOR AUTHORIZATION. CM DIRECTOR IN CONTACT W REP FROM [facility] AND WILL FOLLOW UP
--- NOTE | 2019-07-21 21:57 | NUR ---
Medihoney not given due to postop
[2019-07-21 22:12] VITALS: BP 132/82
--- NOTE | 2019-07-21 23:00 | NUR ---
patient started on Bipap at 23:00
[2019-07-22] VITALS (7 sets, daily range): BP systolic 95–146; BP diastolic 56–83
[2019-07-22] MEDS: GUAIFENESIN-DM 200/20 MG 10 ML PO SCH ×4 (04:45→23:32)
--- NOTE | 2019-07-22 04:47 | NUR ---
Robitussin not given due to patient's condition of atelectasis and suppressed cough.
[2019-07-22] MEDS: LEVOTHYROXINE 150 MCG TABLET PO SCH (05:39)
[2019-07-22] MEDS: METFORMIN HCL 500 MG TABLET PO SCH ×2 (05:41→16:54)
[2019-07-22] MEDS: SODIUM CHLORIDE 3% FOR INHALATION 4 ML/AMP VIAL.NEB IH SCH ×3 (06:21→23:32)
[2019-07-22] MEDS: IPRATROPIUM 0.5 MG/2.5 ML INH IH SCH ×4 (06:21→23:32)
[2019-07-22] MEDS: INSULIN HUMULIN R 100 UNIT/ML 3ML SQ SCH ×4 (06:21→21:00)
[2019-07-22] MEDS: PANTOPRAZOLE SODIUM 40 MG TABLET.DR PO SCH ×2 (09:02→21:32)
[2019-07-22] MEDS: PAROXETINE HCL 20 MG TABLET PO SCH (09:02)
[2019-07-22] MEDS: METOPROLOL TARTRATE 25 MG TAB PO SCH ×2 (09:02→21:32)
[2019-07-22] MEDS: LISINOPRIL 40 MG TABLET PO SCH (09:02)
[2019-07-22] MEDS: HYDROCHLOROTHIAZIDE 25 MG TABLET PO SCH (09:02)
[2019-07-22] MEDS: ENOXAPARIN SODIUM 30 MG/0.3 ML SQ SCH (09:03)
[2019-07-22] MEDS: POLYETHYLENE GLYCOL 3350 17 GM POWD.PACK PO SCH (09:04)
[2019-07-22] MEDS: HONEY 1 APPL/ML TUBE TP SCH (09:04)
[2019-07-22] MEDS: ZOSYN 3.375GM+NS 50ML 50 ML IV SCH ×2 (09:04→16:54)
[2019-07-22] MEDS: TRAZODONE HCL 100 MG TABLET PO SCH ×3 (09:06→21:32)
[2019-07-22] MEDS: MEGESTROL 400 MG/10 ML UDCUP PO SCH (09:06)
--- NOTE | 2019-07-22 13:00 | NUR ---
CARDIOLOGY CONSULT NOTIFIED. SPOKE TO [facility] CORK INSULATOR HELPER. DR. ESCALANTE LENS INSPECTOR TODAY.
--- NOTE | 2019-07-22 16:00 | NUR ---
WAI Rodriguez MD HOPEFUL THAT [facility] WILL TAKE PT AND SOON NEW FINDING OF PERICARDIAL EFFUSION. WAITING ON DECISION BY MARITZA OLIVO FOR DISPOSITION Addendum: 07/22/19 at 1752 by SALINA BRAUN RN CM Amended: Links added.
--- NOTE | 2019-07-22 16:30 | NUR ---
DR. FLORES NOTIFIED OF PATIENT HAVING SURGERY CONSULT FOR EXPLORATORY LAP WITH LEFT HEMICOLECTOMY AND LIVER BIOSPY . INFORMED DR. FLORES THAT PATIENT K STILL LOW . RECEIVED ORDERS FOR MG PROTOCOL.
--- NOTE | 2019-07-22 16:51 | NUR ---
PREVIOUS NOTE 1650 ON WRONG PT
[2019-07-23] MEDS: ZOSYN 3.375GM+NS 50ML 50 ML IV SCH ×4 (00:13→23:39)
[2019-07-23 03:51] VITALS: BP 129/72
[2019-07-23 05:46] LABS: BASOPHILS % (AUTO) 1.6 % (0.0-5.0); EOSINOPHILS % (AUTO) 2.1 % (0.0-8.0); LYMPHOCYTES % (AUTO) 17.9 % (21.0-51.0); MEAN CORPUSCULAR HGB CONC 34.2 g/dL (32.0-36.0); MEAN CORPUSCULAR VOLUME 87.7 fL (79-99); MONOCYTES % (AUTO) 10.2 % (3.0-13.0); NEUTROPHILS % (AUTO) 68.2 % (40.0-77.0); PLATELET COUNT (AUTO) 245 K/uL (130-400); RED BLOOD CELL COUNT(AUTO) 3.08 MIL/uL (4.00-5.50); WHITE BLOOD COUNT (AUTO) 5.9 K/uL (4.8-10.8)
[2019-07-23 05:51] LABS: CREATININE 0.8 mg/dL (0.5-1.5); POTASSIUM 4.1 mmol/L (3.5-5.1)
[2019-07-23 05:53] LABS: INR 0.95 (0.85-1.15); PARTIAL THROMBOPLASTIN TIME 30.3 SEC (26.3-35.5)
[2019-07-23] MEDS: IPRATROPIUM 0.5 MG/2.5 ML INH IH SCH ×4 (06:06→23:48)
[2019-07-23] MEDS: SODIUM CHLORIDE 3% FOR INHALATION 4 ML/AMP VIAL.NEB IH SCH ×4 (06:06→23:48)
[2019-07-23] MEDS: METFORMIN HCL 500 MG TABLET PO SCH ×2 (06:36→16:22)
[2019-07-23] MEDS: GUAIFENESIN-DM 200/20 MG 10 ML PO SCH ×4 (06:36→23:39)
[2019-07-23] MEDS: LEVOTHYROXINE 150 MCG TABLET PO SCH (06:36)
[2019-07-23] MEDS: INSULIN HUMULIN R 100 UNIT/ML 3ML SQ SCH ×4 (06:41→21:00)
[2019-07-23 07:30] VITALS: BP 115/69
[2019-07-23] MEDS: HONEY 1 APPL/ML TUBE TP SCH (09:00)
[2019-07-23] MEDS: POLYETHYLENE GLYCOL 3350 17 GM POWD.PACK PO SCH (09:40)
[2019-07-23] MEDS: HYDROCHLOROTHIAZIDE 25 MG TABLET PO SCH ×2 (09:40→10:31)
[2019-07-23] MEDS: LISINOPRIL 40 MG TABLET PO SCH (09:40)
[2019-07-23] MEDS: MEGESTROL 400 MG/10 ML UDCUP PO SCH (09:40)
[2019-07-23] MEDS: TRAZODONE HCL 100 MG TABLET PO SCH ×3 (09:41→21:26)
[2019-07-23] MEDS: PANTOPRAZOLE SODIUM 40 MG TABLET.DR PO SCH ×2 (09:41→21:26)
[2019-07-23] MEDS: PAROXETINE HCL 20 MG TABLET PO SCH (09:41)
[2019-07-23] MEDS: METOPROLOL TARTRATE 25 MG TAB PO SCH ×2 (09:41→21:27)
[2019-07-23 11:00] VITALS: BP_SYST 111; BP_SYST 91; BP_DIAS 57; BP_DIAS 65
--- NOTE | 2019-07-23 15:55 | NUR ---
JASON NOTIFICATION/ FOLLOW UP DX: UTI, FALL. DIET: GI SOFT/ BLAND, 60GMCCD, NO COFFEE. 30ML PROMOD TID, MIGHTY MILK TID, SRAVANI AND PUDDING WITH ALL MEALS. SKIN: ULCER AT BUTTOCKS REGION. PT SLEEPING DURING VISIT. RN STATED SHE ENCOURAGED PT TO EAT LUNCH TODAY, PT ATE OF MEAL. PT ATTEMPTED TO DRINK PROMOD, HOWEVER DID NOT LIKE IT PER NURSE. PT CONTINUES TO BE VERY FRAGILE AND WEAK, HOWEVER STILL IMPROVING. RD RECOMMENDS TO CONTINUE CURRENT DIET AND SUPPLEMENTS. CONTINUE TO ENCOURAGE PT TO EAT AND TAKE HER SUPPLEMENTS. ASSIST IN FEEDINGS. PLEASE NOTIFY RD IF ANY DIETARY CONCERNS ARISE. THANK YOU. Addendum: 07/23/19 at [address] Amended: Links added.
[2019-07-23 16:00] VITALS: BP 91/57
--- NOTE | 2019-07-23 17:01 | NUR ---
FINALLY AUTH INPUTTED AT [facility] FROM [facility] STATES THAT THE AUTH FOR [facility] WAS FINALLY SUBMITTED AND ACCEPTED AND FELS THAT NOW WILL HAVE AUTH IN AM
[2019-07-23 20:00] VITALS: BP 112/61
--- NOTE | 2019-07-23 23:55 | NUR ---
Patient placed on 2L NC due to low SpO2. Addendum: 07/23/19 at 2356 by RT KRYSTA RT Amended: Links added.
[2019-07-24] VITALS: BP 125/70
[2019-07-24 04:00] VITALS: BP 149/78
[2019-07-24] MEDS: LEVOTHYROXINE 150 MCG TABLET PO SCH (05:45)
[2019-07-24] MEDS: GUAIFENESIN-DM 200/20 MG 10 ML PO SCH ×2 (05:45→10:26)
[2019-07-24] MEDS: SODIUM CHLORIDE 3% FOR INHALATION 4 ML/AMP VIAL.NEB IH SCH ×2 (06:23→11:24)
[2019-07-24] MEDS: IPRATROPIUM 0.5 MG/2.5 ML INH IH SCH ×2 (06:23→11:19)
[2019-07-24] MEDS: METFORMIN HCL 500 MG TABLET PO SCH (06:32)
[2019-07-24] MEDS: INSULIN HUMULIN R 100 UNIT/ML 3ML SQ SCH ×2 (06:36→12:00)
[2019-07-24 08:00] VITALS: BP 125/73
[2019-07-24] MEDS: ZOSYN 3.375GM+NS 50ML 50 ML IV SCH (08:09)
[2019-07-24] MEDS: MEGESTROL 400 MG/10 ML UDCUP PO SCH (08:09)
[2019-07-24] MEDS: METOPROLOL TARTRATE 25 MG TAB PO SCH (08:10)
[2019-07-24] MEDS: POLYETHYLENE GLYCOL 3350 17 GM POWD.PACK PO SCH (08:10)
[2019-07-24] MEDS: PAROXETINE HCL 20 MG TABLET PO SCH (08:10)
[2019-07-24] MEDS: LISINOPRIL 40 MG TABLET PO SCH (08:12)
[2019-07-24] MEDS: HONEY 1 APPL/ML TUBE TP SCH (09:00)
[2019-07-24] MEDS: PANTOPRAZOLE SODIUM 40 MG TABLET.DR PO SCH (09:00)
[2019-07-24] MEDS: TRAZODONE HCL 100 MG TABLET PO SCH ×2 (11:59→14:00)
[2019-07-24 12:00] VITALS: BP 132/76
--- NOTE | 2019-07-24 15:28 | NUR ---
REPORT GIVEN TO KENZIE GARCIA RN OF [facility]. PATIENT IS READY TO BE TRANSFER.
--- NOTE | 2019-07-24 17:36 | NUR ---
LEAVING NOW BY EMS CALL MADE TO HER DAUGHTER AT [phone] AND INFORMED OF TRANSPORT SHE WILL GO VISIT TO THE FACILITY AND BRING CLOTHES FOR THERAPY Addendum: 07/24/19 at 1738 by SALINA BRAUN RN CM Amended: Links added.
== END 2019-07-24 17:35 | DRG 951 ==
LOC: EDH 01:26 → EDHIP 01:27 → OBSVTOIN 01:27 → 3CH 15:51
PROVIDERS: ADMIT Internal Medicine; ATTEND Internal Medicine
PROC: 5A09357 Assistance with Respiratory Ventilation, Less than 24 Consecutive Hours, Continuous Positive Airway Pressure (ICD-10-PCS; principal; 2019-07-17)
PROC: 0JD90ZZ Extraction of Buttock Subcutaneous Tissue and Fascia, Open Approach (ICD-10-PCS; 2019-07-17)
PROC: 5A09357 Assistance with Respiratory Ventilation, Less than 24 Consecutive Hours, Continuous Positive Airway Pressure (ICD-10-PCS; 2019-07-19)
PROC: 5A09357 Assistance with Respiratory Ventilation, Less than 24 Consecutive Hours, Continuous Positive Airway Pressure (ICD-10-PCS; 2019-07-22)
DX: J96.21 Acute and chronic respiratory failure with hypoxia (principal); E03.5 Myxedema coma; J90 Pleural effusion, not elsewhere classified; L89.223 Pressure ulcer of left hip, stage 3; L89.319 Pressure ulcer of right buttock, unspecified stage; E44.0 Moderate protein-calorie malnutrition; I31.3 Pericardial effusion (noninflammatory); E83.42 Hypomagnesemia; M62.82 Rhabdomyolysis; J96.22 Acute and chronic respiratory failure with hypercapnia; N39.0 Urinary tract infection, site not specified; R45.851 Suicidal ideations; F32.9 Major depressive disorder, single episode, unspecified; R29.6 Repeated falls; J98.11 Atelectasis; I16.0 Hypertensive urgency; E11.9 Type 2 diabetes mellitus without complications; E66.9 Obesity, unspecified; Z68.28 Body mass index [BMI] 28.0-28.9, adult; E78.5 Hyperlipidemia, unspecified; E03.9 Hypothyroidism, unspecified; F41.9 Anxiety disorder, unspecified; E78.00 Pure hypercholesterolemia, unspecified; E83.51 Hypocalcemia; E86.0 Dehydration; F60.7 Dependent personality disorder; I11.9 Hypertensive heart disease without heart failure; W18.30XA Fall on same level, unspecified, initial encounter; Y93.89 Activity, other specified; Y92.89 Other specified places as the place of occurrence of the external cause; Y99.8 Other external cause status; Z74.01 Bed confinement status; Z99.81 Dependence on supplemental oxygen; Z91.19 Patient's noncompliance with other medical treatment and regimen; Z91.14 Patient's other noncompliance with medication regimen; Z83.3 Family history of diabetes mellitus; Z82.3 Family history of stroke; Z82.49 Family history of ischemic heart disease and other diseases of the circulatory system
CPT/HCPCS: 36415; 36600; 70450; 71045; 71101; 71250; 71275; 73502; 73521; 76536; 80048; 80053; 80305; 81001; 82040; 82270; 82306; 82550; 82803; 82948; 83036; 83605; 83690; 83735; 83874; 83880; 84100; 84436; 84439; 84443; 84480; 84481; 84484; 85014; 85018; 85025; 85027; 85610; 85730; 87070; 87076; 87077; 87088; 87186; 93005; 93306; 93970; 94640; 94660; 94664; 96374; 97039; A6250; G0378; J0360; J0696; J1650; J1720; J1815; J1940; J2270; J2405; J2543; J3475; J3480; J3490; J7030; J7042; J7070; J8540; Q9967